=== PATIENT | female | born 1975 | race Caucasian/White ===

== ENCOUNTER 2017-02-16 17:31 | Inpatient (IN) | payer OTHER ==
[~2017-02-16] VITALS: Ht 165.1 cm; Wt 104.4 kg
[2017-02-16] MEDS ORDERED: ONDANSETRON 4 MG INJ IV PRN (21:00)
[2017-02-16] MEDS ORDERED: ACCU-CHEK XX SCH (21:00)
[2017-02-16] MEDS ORDERED: DIPHENHYDRAMINE 25 MG CAP PO PRN (21:00)
[2017-02-16] MEDS ORDERED: DEXTROSE 50% 50 ML SYRINGE IV PRN ×3 (21:00→22:30)
[2017-02-16] MEDS ORDERED: BISACODYL 10 MG SUPP PR PRN ×2 (21:00→23:00)
[2017-02-16] MEDS ORDERED: SENNA/DOCUSATE NA (8.6MG/50MG) TAB PO PRN (21:00)
[2017-02-16] MEDS ORDERED: ZOLPIDEM 5 MG TAB PO PRN (21:00)
[2017-02-16] MEDS ORDERED: INSULIN REGULAR, HUMAN 100 UNIT/1 ML 3ML VIAL SC SCH (21:00)
[2017-02-16] MEDS ORDERED: AL HYDROX/MG HYDROX/SIMETH 30 ML CUP PO PRN (21:00)
[2017-02-16] MEDS ORDERED: NALOXONE (0.4 MG/ML) INJ IV PRN (21:00)
[2017-02-16 21:23] VITALS: Ht 165.1 cm; Wt 104.4 kg
[2017-02-16] MEDS ORDERED: GLUCOSE GEL 15 GRAM TUBE PO PRN ×2 (22:30)
[2017-02-16] MEDS ORDERED: GLUCOSE GEL 15 GRAM TUBE BUCCAL PRN (22:30)
[2017-02-16] MEDS ORDERED: GLUCAGON 1 MG INJ IM PRN (22:30)
[2017-02-16] MEDS: DOCUSATE SODIUM 100 MG CAP PO SCH (22:32)
[2017-02-16] MEDS: PANTOPRAZOLE (EC) 40 MG TAB PO SCH (22:32)
[2017-02-16] MEDS: oxyCODONE 15 MG TAB PO PRN (22:39)
[2017-02-16] MEDS ORDERED: MAGNESIUM HYDROXIDE 30ML CUP PO PRN (23:00)
[2017-02-16] MEDS ORDERED: LACTULOSE 30ML CUP PO PRN (23:00)
[2017-02-16] MEDS ORDERED: ACETAMINOPHEN 325 MG TAB PO PRN (23:00)
[2017-02-16 23:24] LABS: ADD UMIC YES; URINE BILIRUBIN (Dip) NEGATIVE (NEGATIVE); URINE BLOOD (Dip) 2+ (NEGATIVE); URINE COLOR LT. YELLOW (YELLOW); URINE KETONES (Dip) NEGATIVE (NEGATIVE); URINE LEUKOCYTE ESTERASE (Dip) NEGATIVE (NEGATIVE); URINE NITRITE (Dip) NEGATIVE (NEGATIVE); URINE TOTAL PROTEIN (Dip) NEGATIVE (NEGATIVE); URINE UROBILINOGEN (Dip) 1.0 E.U./dL (0.1-1.0)
[2017-02-16 23:40] LABS: BACTERIA,URINE FEW; SQUAMOUS EPITHELIAL CELL,UR MODERATE
[2017-02-17] MEDS: HYDROmorphONE 1 MG/ML SYG SC PRN (01:05)
[2017-02-17] MEDS: ACCUCHECK AT 2AM (Patients on SS coverage) XX SCH (02:00)
[2017-02-17] MEDS: oxyCODONE 15 MG TAB PO PRN ×4 (04:07→22:10)
[2017-02-17 07:36] LABS: ADD SCAN DIFF NO
[2017-02-17 07:45] LABS: BASOPHIL # 0.1 10^3/ul (0.0-0.1); BASOPHILS % 0.5 % (0.0-2.0); EOSINOPHILS # 0.5 10^3/ul (0.0-0.5); EOSINOPHILS % 4.6 % (0.0-7.0); HEMATOCRIT 27.3 % (37.0-47.0); HEMOGLOBIN 8.8 g/dl (12.0-16.0); LYMPHOCYTES # 2.2 10^3/ul (0.8-2.9); LYMPHOCYTES % 21.8 % (15.0-51.0); MEAN CORPUSCULAR HEMOGLOBIN 28.9 pg (29.0-33.0); MEAN CORPUSCULAR HGB CONC 32.2 g/dl (32.0-37.0); MEAN CORPUSCULAR VOLUME 89.8 fl (82.0-101.0); MEAN PLATELET VOLUME 9.7 fl (7.4-10.4); MONOCYTE # 0.9 10^3/ul (0.3-0.9); MONOCYTES % 8.6 % (0.0-11.0); NEUTROPHIL # 6.5 10^3/ul (1.6-7.5); NEUTROPHILS % 64.2 % (39.0-77.0); PLATELET COUNT 370 10^3/UL (140-415); RED BLOOD COUNT 3.04 10^6/ul (4.20-5.40); RED CELL DISTRIBUTION WIDTH 12.1 % (11.5-14.5); WHITE BLOOD COUNT 10.1 10^3/ul (4.8-10.8)
[2017-02-17 07:55] LABS: ALBUMIN 2.8 g/dl (3.3-4.9); ALBUMIN/GLOBULIN RATIO 0.84; CREATININE 0.51 mg/dl (0.44-1.00); POTASSIUM 4.2 mmol/L (3.5-5.1); TOTAL PROTEIN 6.1 g/dl (6.1-8.1)
[2017-02-17] MEDS: Insulin NOVOLOG SS MILD Algorithm (SS with meals and bedtime) SC SCH ×5 (08:08→20:53)
[2017-02-17] MEDS: DOCUSATE SODIUM 100 MG CAP PO SCH ×2 (08:09→20:35)
[2017-02-17] MEDS: metFORMIN 500 MG TAB PO SCH ×2 (08:09→17:33)
[2017-02-17 08:10] LABS: BILIRUBIN,INDIRECT 0.6 mg/dl (0-1.1); BILIRUBIN,TOTAL 0.6 mg/dl (0.2-1.3)
[2017-02-17] MEDS: LISINOPRIL 20 MG TAB PO SCH (08:12)
[2017-02-17] MEDS ORDERED: DOCUSATE SODIUM 100 MG CAP PO SCH (09:00)
--- NOTE | 2017-02-17 09:57 | HP ---
DATE OF ADMISSION: 02/16/2017 PHYSICAL MEDICINE AND REHABILITATION HISTORY AND PHYSICAL/PHYSICIAN POSTADMISSION ASSESSMENT DATE OF VISIT: 02/17/2017 REHABILITATION IMPAIRMENT GROUP: Status post left total knee replacement. CHIEF COMPLAINT: Impaired mobility and left knee pain. HISTORY OF PRESENT ILLNESS: This is a 41-year-old obese female with past medical history significant for diabetes mellitus and hypertension who sustained a work related injury to her left knee in January 2009 with increasing left knee pain and noted left knee degenerative joint disease, failing conservative treatment, so she elected to proceed with a left total knee replacement. The patient went to the OR on 02/12/2017 and underwent left total knee replacement by Dr. Blaine Stroud with no reported intraoperative complications. Postoperatively she is weight bearing as tolerated on the left lower extremity with knee immobilizer on during out of bed activities per documentation in the chart. Her post op course has been complicated by postoperative pain followed by pain management team. The patient was placed on Xarelto for DVT prophylaxis. The patient did work with physical and occupational therapies and noted to have a significant overall functional decline from her baseline independent status. Currently she is requiring moderate assistance for bed mobility and transfers as well as gait 30 feet with a walker and she is requiring moderate assistance for toileting and bathing, maximal assistance for lower body dressing, minimal assistance for grooming and upper body dressing. PAST MEDICAL AND SURGICAL HISTORY: As stated in history of present illness. FAMILY HISTORY: Noncontributory. SOCIAL HISTORY: The patient denies current toxic habits. She lives in a single story home with her family, reports 1 step to enter. The patient reports she was previously independent for all mobility and self-care ADLs and was using a cane for ambulation. MEDICATIONS ON ADMISSION: Reviewed in the electronic medical records including : 1. Senna daily. 2. Xarelto 10 mg daily. 3. Lisinopril 20 mg daily. 4. Metformin 500 mg twice daily. 5. Insulin sliding scale as needed. 6. Milk of magnesia as needed. 7. Lactulose as needed. 8. Dulcolax suppository as needed. 9. Tylenol as needed. 10. Protonix 40 mg daily. 11. Colace 100 mg twice daily. 12. Senokot as needed. 13. Ambien as needed. 14. Clonidine as needed. 15. Benadryl as needed. 16. Ativan as needed. 17. Phenol as needed. 18. Oxycodone immediate release 15 mg oral q. 3 hours as needed for pain. 19. Zofran as needed. 20. Dilaudid 1 mg subcutaneous q. 3 hours as needed for pain. ALLERGIES: NO KNOWN DRUG ALLERGIES. LABORATORIES/IMAGING: Reviewed in the electronic medical records. Hemoglobin 8.8, hematocrit 27.3. WBC 10.1, platelets 370. Sodium 132, potassium 4.2, BUN 8, creatinine 0.51, calcium 8.0, albumin 2.8. REVIEW OF SYSTEMS: CONSTITUTIONAL: Denies fevers, chills. EYES: Denies pain or discharge. EARS, NOSE AND THROAT: Denies changes in hearing, no difficulty swallowing. RESPIRATORY: Denies shortness of breath, no cough. CARDIOVASCULAR: No chest pain, no palpitations. GENITOURINARY: Denies dysuria or hematuria. GASTROINTESTINAL: Denies abdominal pain, no nausea or vomiting. Reports bowel movement yesterday. NEUROLOGICAL: Denies new focal weakness. No new paresthesias. MUSCULOSKELETAL: Currently reports 7/10 pain in the left knee after working with physical therapies. SKIN: Denies itching. No new rashes. PSYCHIATRIC: Denies anxiety or depression. REVIEW OF SYSTEMS: Otherwise negative. PHYSICAL EXAMINATION: VITAL SIGNS: Temperature 98.1 Fahrenheit, BP 120/72, heart rate 104, respiratory rate 16, 96% O2 saturation on room air . GENERAL: The patient is a well-nourished, well-developed, obese, awake, alert, in no acute distress. HEENT: Normocephalic, atraumatic. Mucous membranes moist. Sclera anicteric. NECK: Supple, nontender. RESPIRATORY: Lungs are clear to auscultation. No crackles or wheezing. No accessory muscle use. CARDIOVASCULAR: Regular rate and rhythm. Audible S1, S2. ABDOMEN: Soft, nontender, bowel sounds present, no masses palpated. EXTREMITIES: Calves are nontender. No cyanosis. There is some swelling and bruising near the left knee region. SKIN: Blanchable redness in the bilateral heels as well as in the sacrococcyx area and some bruising near the left knee surgical site with Aquacel dressing in place, was not removed. Per pictures left knee surgical site appears clean and dry with kwame in place. Scattered bruising in the extremities. PSYCHIATRIC: Oriented x3. Affect and mood are appropriate. NEUROLOGICAL/MUSCULOSKELETAL: Active range of motion in the bilateral upper and right lower extremity is within functional limits. No joint redness. She has antigravity strength overall in the upper extremities and right lower extremity. Active Left dorsiflexion, plantar flexion on the left and wiggles toes. Left lower extremity proximal testing pain limited. Sensation intact to light touch. IMPRESSION: 1. Status post work related injury to the left knee with left knee degenerative joint disease failing conservative treatment now status post left total knee replacement. 2. Acute postoperative pain syndrome. 3. Impaired mobility, gait and balance. 4. Impaired self-care activities of daily living. 5. Diabetes mellitus type 2. 6. Hypertension. 7. Obesity. 8. Anemia. PLAN: 1. The patient will be admitted for inpatient comprehensive interdisciplinary rehabilitation to address impairments and medical conditions listed above while assessing equipment needs and compensatory strategies with coordinated interdisciplinary services that will include physical and occupational therapies and close monitoring and treatment with 24-hour rehabilitation nursing. This interdisciplinary program will be performed under the direction of a technical illustrations map inker. The patient is anticipated to be able to participate in 3 hours daily of therapies for at least 5 out of the 7 days per week. 2. The patient will begin physical therapy for bed mobility, transfers, balance training, gait training with assistive devices. 3. Begin occupational therapies for activities of daily living, functional transfers, patient education and adaptive equipment evaluation. 4. Rehabilitation nursing to provide the patient education regarding current medications as they relate to medical illness. Monitor blood sugars. Monitor for signs or symptoms of hyper or hypoglycemia. Monitor pain and monitor bowel and bladder programs and administer such programs. 5. For medical management the patient will be followed by Dr. [facility]. 6. For hypertension, internal medicine is to medically manage. We will monitor her blood pressures. 7. For diabetes mellitus type 2, being medically managed per internal medicine. Continue current regimen and monitor blood sugars. 8. For anemia, monitor hemoglobin and hematocrit. Defer further workup per internal medicine. 9. For deep venous thrombosis prophylaxis she is on Xarelto. 10. Gastrointestinal prophylaxis she is on a proton pump inhibitor. 11. For acute postoperative pain, pain appears to be uncontrolled with current regimen. Dosing of p.r.n. immediate release oxycodone has been increased. Will also start on Oxycontin extended release for better pain relief. Will monitor as she mobilizes further with therapies and adjust further as needed. REHABILITATION GOALS: To improve bed mobility, transfers, gait and self-care ADLs to supervision level. ESTIMATED LENGTH OF STAY: Approximately 10 to 14 days. Her case will be discussed at the weekly interdisciplinary conference. ANTICIPATED DISPOSITION: To home with family. PROGNOSIS: At this current time this inpatient hospital rehabilitation stay is medically necessary to achieve important health and functional goals. The patient requires frequent physician visits, 24-hour rehabilitation nursing and a coordinated intensive rehabilitation program as described above to address complex medical, nursing and rehabilitation needs. The patient has a good prognosis for benefiting from this program and returning to home and community. REHABILITATION PHYSICIAN POST-ADMISSION ASSESSMENT REVIEW: I have had the opportunity to examine the patient within 24 hours of admission and have reviewed the preadmission assessment and find it consistent with my examination and evaluation of the patient. I confirm that this patient is appropriate for admission and treatment in this inpatient rehabilitation hospital, needs intense interdisciplinary rehabilitation care and is expected to achieve meaningful goals within a reasonable period of time that are consistent with a planned discharge disposition as noted above. Dictated By: GLEN HOUGH MD, RA/ETHAN Conf#: [id number] DID#: [id number]
[2017-02-17] MEDS: oxyCODONE 5 MG TAB PO PRN ×2 (10:36→14:10)
[2017-02-17] MEDS: RIVAROXABAN 10 MG TABLET PO SCH (17:33)
[2017-02-17 19:20] VITALS: BP 115/76; PULSE 98; RESP 18
[2017-02-17] MEDS: PANTOPRAZOLE (EC) 40 MG TAB PO SCH (20:35)
[2017-02-17] MEDS: oxyCODONE (CR) 10 MG TAB [oxyCONTIN] PO SCH (20:35)
[2017-02-17] MEDS: SENNA TAB PO SCH (20:36)
[2017-02-17] MEDS: LORAZEPAM 0.5 MG TAB PO PRN (22:07)
[2017-02-18] MEDS: ACCUCHECK AT 2AM (Patients on SS coverage) XX SCH (02:30)
[2017-02-18] MEDS: oxyCODONE 15 MG TAB PO PRN (03:47)
[2017-02-18 07:30] VITALS: BP 123/68; RESP 18
[2017-02-18] MEDS: metFORMIN 500 MG TAB PO SCH ×2 (08:34→17:33)
[2017-02-18] MEDS: LISINOPRIL 20 MG TAB PO SCH (08:34)
[2017-02-18] MEDS: CEPASTAT LOZENGE MT PRN ×3 (08:34→17:36)
[2017-02-18] MEDS: DOCUSATE SODIUM 100 MG CAP PO SCH ×2 (08:35→20:11)
[2017-02-18] MEDS: Insulin NOVOLOG SS MILD Algorithm (SS with meals and bedtime) SC SCH ×4 (08:37→20:46)
[2017-02-18] MEDS: oxyCODONE (CR) 10 MG TAB [oxyCONTIN] PO SCH ×2 (08:38→20:12)
--- NOTE | 2017-02-18 09:36 | CONS ---
Date/Time of Note Date/Time of Note DATE: 02/18/17 TIME: 09:27 Consult Date/Type/Reason Admit Date/Time Feb 16, 2017 at 20:23 Initial Consult Date Subjective This is a 41-year-old morbidly obese female with past medical history significant for diabetes mellitus and hypertension who sustained a work related injury to her left knee in January 2009 with increasing left knee pain and noted left knee degenerative joint disease, failing conservative treatment, she elected to proceed with a left total knee replacement. The patient went to the OR on 02/12/2017 and underwent left total knee replacement by Dr. Blaine Stroud with no reported intraoperative complications. Postoperative course has been complicated by postoperative pain followed by pain management team. The patient was placed on Xarelto for DVT prophylaxis. The patient did work with physical and occupational therapies and noted to have a significant overall functional decline from her baseline independent status. Currently she is requiring minimal assistance for bed mobility and transfers as well as gait 30 feet with a walker and she is requiring moderate assistance for bathing, maximal assistance for lower body dressing, supervision for grooming. REVIEW OF SYSTEMS: CONSTITUTIONAL: Denies fevers, chills. EYES: Denies pain or discharge. EARS, NOSE AND THROAT: Denies changes in hearing, no difficulty swallowing. RESPIRATORY: Denies shortness of breath, no cough. CARDIOVASCULAR: No chest pain, no palpitations. GENITOURINARY: Denies dysuria or hematuria. GASTROINTESTINAL: Denies abdominal pain, no nausea or vomiting. Reports bowel movement yesterday. NEUROLOGICAL: Denies new focal weakness. No new paresthesias. MUSCULOSKELETAL: Currently reports 7/10 pain in the left knee after working with physical therapies. SKIN: Denies itching. Her surgical site has an Aquacel dressing in place. She has blanchable redness in the bilateral heels. There is some scattered bruising in her extremities as well as bruising in the left lower extremity near in the knee region and blanchable redness in the sacrococcyx area. PSYCHIATRIC: Denies anxiety or depression. PHYSICAL EXAMINATION: GENERAL: The patient is a well-nourished, well-developed, obese, awake, alert, in no acute distress. HEENT: Normocephalic, atraumatic. Mucous membranes moist. NECK: Supple, nontender. RESPIRATORY: Lungs are clear to auscultation. No crackles or wheezing. CARDIOVASCULAR: Regular rate and rhythm. Audible S1, S2. ABDOMEN: Soft, nontender, bowel sounds present, no masses palpated. EXTREMITIES: Calves are nontender. No cyanosis. There is some swelling and bruising near the left knee region. SKIN: Blanchable redness in the bilateral heels as well as in the sacrococcyx area and some bruising near the left knee surgical site with Aquacel dressing in place, was not removed. PSYCHIATRIC: Affect and mood are appropriate. NEUROLOGICAL/MUSCULOSKELETAL: Active range of motion in the bilateral upper and right lower extremity is within normal limits. No joint redness. She has good to good plus strength overall in the upper extremities and right lower extremity. Left dorsiflexion, plantar flexion appears to be grossly intact. Left lower extremity proximal testing pain limited. Objective Vital Signs Date Time Temp Pulse Resp B/P Pulse Ox O2 Delivery O2 Flow Rate FiO2 02/17/17 19:20 98.1 98 18 115/76 95 Room Air Results/Medications Result Diagram: 02/17/1761802/17/17618 Results 24 hrs Laboratory Tests Test 02/17/17 12:04 02/17/17 17:01 02/17/17 20:41 02/18/17 02:28 Bedside Glucose 228 H 155 282 H 166 Test 02/18/17 07:33 Bedside Glucose 197 Medications Current Medications Docusate Sodium (Colace) 100 mg BID PO Last administered on 02/18/17 08:35; Admin Dose 100 MG; Start 02/16/17 at 21:00 Pantoprazole (Protonix Tab) 40 mg HS PO Last administered on 02/17/17 20:35; Admin Dose 40 MG; Start 02/16/17 at 22:30 Lisinopril (Zestril) 20 mg DAILY PO Last administered on 02/18/17 08:34; Admin Dose 20 MG; Start 02/17/17 at 09:00 Senna/Docusate Sodium (Senokot-S) 2 tab HS PRN PO CONSTIPATION; Start 02/16/17 at 21:00 Al Hydrox/Mg Hydrox/Simethicone (Mag-Al Plus) 30 ml Q6H PRN PO GASTROINTESTINAL UPSET; Start 02/16/17 at 21:00 Clonidine (Catapres) 0.1 mg Q8H PRN PO SBP >180; Start 02/16/17 at 21:00 Diphenhydramine HCl (Benadryl) 25 mg Q6H PRN PO ITCHING; Start 02/16/17 at 21:00 Lorazepam (Ativan) 0.5 mg Q8H PRN PO ANXIETY Last administered on 02/17/17 22: 07; Admin Dose 0.5 MG; Start 02/16/17 at 21:00 Phenol (Cepastat Lozenge) 1 lozenge Q2H PRN MT SORE THROAT Last administered on 02/18/17 08:34; Admin Dose 1 LOZENGE; Start 02/16/17 at 21:00 Oxycodone HCl (Roxicodone) 15 mg Q3H PRN PO PAIN Last administered on 02/18/17 03:47; Admin Dose 15 MG; Start 02/16/17 at 21:00 Bisacodyl (Dulcolax Supp) 10 mg Q12H PRN DC CONSTIPATION; Start 02/16/17 at 21: 00 Naloxone HCl (Narcan) 0.2 mg Q2M PRN IV OPIATE OVERDOSE; Start 02/16/17 at 21:00 Ondansetron HCl (Zofran Inj) 4 mg Q4H PRN IV NAUSEA AND/OR VOMITING; Start 02/16 at 21:00 Hydromorphone HCl (Dilaudid) 1 mg Q3H PRN SC PAIN Last administered on 01:05; Admin Dose 1 MG; Start 02/16/17 at 21:00 Diagnostic Test (Pha) (Accu-Chek) 1 ea 02 XX Last administered on 02/18/17 02: 30; Admin Dose 1 EA; Start 02/17/17 at 02:00 Miscellaneous Information 1 ea NOTE XX ; Start 02/16/17 at 22:30 Glucose (Glutose) 15 gm Q15M PRN PO DECREASED GLUCOSE; Start 02/16/17 at 22:30 Glucose (Glutose) 22.5 gm Q15M PRN PO DECREASED GLUCOSE; Start 02/16/17 at 22:30 Dextrose (D50w Syringe) 25 ml Q15M PRN IV DECREASED GLUCOSE; Start 02/16/17 at 22:30 Dextrose (D50w Syringe) 50 ml Q15M PRN IV DECREASED GLUCOSE; Start 02/16/17 at 22:30 Glucagon (Glucagen) 1 mg Q15M PRN IM DECREASED GLUCOSE; Start 02/16/17 at 22:30 Glucose (Glutose) 15 gm Q15M PRN BUCCAL DECREASED GLUCOSE; Start 02/16/17 at 22: 30 Senna (Senokot) 1 tab HS PO Last administered on 02/17/17 20:36; Admin Dose 1 TAB; Start 02/17/17 at 21:00 Magnesium Hydroxide (Milk Of Mag) 30 ml BID PRN PO CONSTIPATION; Start 02/16/17 at 23:00 Lactulose (Enulose) 20 gm DAILY PRN PO CONSTIPATION; Start 02/16/17 at 23:00 Bisacodyl (Dulcolax Supp) 10 mg DAILY PRN DC CONSTIPATION; Start 02/16/17 at 23: 00 Acetaminophen (Tylenol Tab) 650 mg Q4H PRN PO PAIN; Start 02/16/17 at 23:00 Oxycodone HCl (Roxicodone) 20 mg Q3H PRN PO PAIN Last administered on 02/17/17 14:10; Admin Dose 20 MG; Start 02/17/17 at 09:30 Oxycodone HCl (Oxycontin) 10 mg BID PO Last administered on 02/18/17 08:38; Admin Dose 10 MG; Start 02/17/17 at 21:00 Assessment/Plan Chief Complaint/Hosp Course 1. Status post left total knee replacement.- cont pt as outlined by pm&r team. prophylaxis on xarelto. to contact dr. sneed re staple removal. 2. Acute postoperative pain syndrome. reassured patient it is normal. 3. Impaired mobility, gait and balance. 4. Anemia- likely surgical blood loss. if worsens, will need investigation for ongoing blood loss. 5. Diabetes mellitus type 2. 6. Hypertension. 7. Morbid obesity. Problems: BRENNON AGUILAR MD Feb 18, 2017 09:36
--- NOTE | 2017-02-18 10:14 | CONS ---
DATE OF ADMISSION: 02/16/2017 DATE OF CONSULTATION: 02/17/2017 TYPE OF CONSULTATION: Internal medicine. HISTORY OF PRESENT ILLNESS: The patient is a 41-year-old female with past medical history of diabet es and hypertension who presented to [facility] for surgery after noticing a work related injury and left degenerative joint disease, fairly conservative treatment. She elected to proceed with left total knee replacement. She went to the OR on 02/12/2017. Postoperative course complicat ed by postoperative pain followed by pain management team. The patient was placed on Xarelto. She has been tolerating her medications but complains of significant pain still. PAST MEDICAL HISTORY: Significant for diabetes, hypertension, GERD. MEDICATIONS: From home include 1. Metformin. 2. Lisinopril. 3. Xarelto. 4. Senna. 5. Insulin sliding scale. 6. Milk of magnesia. 7. Lactulose. 8. Dulcolax. 9. Tylenol. 10. Protonix. 11. Colace. 12. Senokot. 13. Ambien. 14. Clonidine. 15. Benadryl. 16. Ativan. ALLERGIES: THE PATIENT HAS NO KNOWN ALLERGIES. SOCIAL HISTORY: Does not smoke, drink, or use IV drugs. Lives at home. FAMILY HISTORY: History of kidney disease. REVIEW OF SYSTEMS: A 14-point review of systems is attempted and negative otherwise stated. PHYSICAL EXAMINATION: VITAL SIGNS: We see temperature 98.1, blood pressure 120/72. HEENT: Normocephalic, atraumatic. Pupils equal, round, and reactive to light. Oropharynx shows mo ist mucous membranes. NECK: Supple. HEART: Regular rate and rhythm. LUNGS: Clear to auscultation. ABDOMEN: Soft, nontender, nondistended. Normoactive bowel sounds. EXTREMITIES: No clubbing, cyanosis, or edema. LABORATORY EVALUATION: White count 10.1, hemoglobin 8.8, hematocrit 27.3. Sodium 132, potassium 4. 2, BUN 8, creatinine 0.5, albumin is 2.8. UA is reviewed on microscopy. Chest x-ray is reviewed by radiologist. IMPRESSION: 1. Postoperative total knee replacement. Continue PT as outlined by rehabilitation team. Continue analgesia as outlined by the postoperative pain syndrome. I explained to the patient that time sha ll decrease her pain. 2. Diabetes. Continue metformin and sliding scale insulin and specify diet. 3. Hypertension. Continue same. 4. Anemia. Postoperative related blood loss. Monitor. If worsens, consider investigation for blo od loss with GI. 5. Gastroesophageal reflux disease. Continue proton pump inhibitor. 6. Hyponatremia, mild. Monitor. 7. Prophylaxis on Xarelto and proton pump inhibitor. Dictated By: BRENNON JO/ETHAN Conf#: [id number] DID#: [id number]
[2017-02-18] MEDS: oxyCODONE 5 MG TAB PO PRN ×4 (11:52→23:09)
[2017-02-18] MEDS: RIVAROXABAN 10 MG TABLET PO SCH (17:33)
[2017-02-18] MEDS: PANTOPRAZOLE (EC) 40 MG TAB PO SCH (20:11)
[2017-02-18] MEDS: SENNA TAB PO SCH (20:11)
[2017-02-18 20:35] VITALS: BP 114/72; RESP 16
[2017-02-19] MEDS: HYDROmorphONE 1 MG/ML SYG SC PRN (01:13)
[2017-02-19] MEDS: ACCUCHECK AT 2AM (Patients on SS coverage) XX SCH (02:00)
[2017-02-19 07:18] LABS: ADD SCAN DIFF NO
[2017-02-19 07:19] LABS: BASOPHIL # 0.1 10^3/ul (0.0-0.1); BASOPHILS % 0.6 % (0.0-2.0); EOSINOPHILS # 0.4 10^3/ul (0.0-0.5); EOSINOPHILS % 4.4 % (0.0-7.0); HEMATOCRIT 29.3 % (37.0-47.0); HEMOGLOBIN 9.3 g/dl (12.0-16.0); LYMPHOCYTES # 2.4 10^3/ul (0.8-2.9); LYMPHOCYTES % 24.4 % (15.0-51.0); MEAN CORPUSCULAR HEMOGLOBIN 28.4 pg (29.0-33.0); MEAN CORPUSCULAR HGB CONC 31.7 g/dl (32.0-37.0); MEAN CORPUSCULAR VOLUME 89.6 fl (82.0-101.0); MEAN PLATELET VOLUME 9.3 fl (7.4-10.4); MONOCYTE # 0.8 10^3/ul (0.3-0.9); MONOCYTES % 8.3 % (0.0-11.0); NEUTROPHILS % 61.9 % (39.0-77.0); PLATELET COUNT 452 10^3/UL (140-415); RED BLOOD COUNT 3.27 10^6/ul (4.20-5.40); RED CELL DISTRIBUTION WIDTH 12.3 % (11.5-14.5); WHITE BLOOD COUNT 9.7 10^3/ul (4.8-10.8)
[2017-02-19 07:30] VITALS: BP 121/72; RESP 18
[2017-02-19 07:41] LABS: MAGNESIUM 1.5 mg/dl (1.7-2.5); PHOSPHORUS 4.3 mg/dl (2.5-4.9)
[2017-02-19 07:42] LABS: ALBUMIN/GLOBULIN RATIO 0.88; BILIRUBIN,INDIRECT 0.4 mg/dl (0-1.1); BILIRUBIN,TOTAL 0.4 mg/dl (0.2-1.3); CALCIUM 8.3 mg/dl (8.4-10.2); CREATININE 0.55 mg/dl (0.44-1.00); POTASSIUM 4.2 mmol/L (3.5-5.1); TOTAL PROTEIN 6.4 g/dl (6.1-8.1)
[2017-02-19] MEDS: Insulin NOVOLOG SS MILD Algorithm (SS with meals and bedtime) SC SCH ×4 (08:11→21:00)
[2017-02-19] MEDS: metFORMIN 500 MG TAB PO SCH ×2 (08:11→16:48)
[2017-02-19] MEDS: DOCUSATE SODIUM 100 MG CAP PO SCH ×2 (08:11→20:30)
[2017-02-19] MEDS: oxyCODONE (CR) 10 MG TAB [oxyCONTIN] PO SCH ×2 (08:12→20:31)
[2017-02-19] MEDS: LISINOPRIL 20 MG TAB PO SCH (08:12)
[2017-02-19] MEDS ORDERED: MAGNESIUM OXIDE 400 MG TAB PO ONE (10:30)
[2017-02-19] MEDS: oxyCODONE 5 MG TAB PO PRN ×4 (10:37→22:45)
--- NOTE | 2017-02-19 11:03 | PN ---
DATE: 02/19/2017 SUBJECTIVE: The patient is stable. Pain is currently controlled. No other acute events noted. OBJECTIVE: VITAL SIGNS: Blood pressure 142/62, respirations 16, pulse 97, temperature 98.3. HEENT: Head is normocephalic. NECK: Supple. HEART: Regular rate. LUNGS: Show diminished breath sounds at the base. ABDOMEN: Soft, nontender to palpation without rebound or guarding. EXTREMITIES: Negative for clubbing, cyanosis. No edema. DERMATOLOGIC: No rashes. MUSCULOSKELETAL: The patient's left knee is in a brace. NEUROLOGIC: No change in exam. LABORATORY DATA: Shows sodium 134, potassium 4.2, BUN 7, creatinine 0.55, magnesium 1.7. White cou nt 9.7, hemoglobin 9.3, hematocrit 29.3, platelet count is 452. ASSESSMENT AND PLAN: 1. Status post left knee replacement therapy. The patient currently receiving PT, OT. Continue pa in control. Continue deep venous thrombosis prophylaxis. 2. Diabetes. Continue current insulin regimen. Continue metformin. 3. Hypertension. Continue current blood pressure regimen. 4. Anemia. Continue to monitor hemoglobin and hematocrit levels. 5. Mild hyponatremia. Continue to monitor. 6. Deep venous thrombosis prophylaxis. Continue proton pump inhibitor and Xarelto. 7. Hypomagnesemia, replete with magnesium oxide. Dictated By: RASHAWN BEAN/ETHAN Conf#: [id number] DID#: [id number]
--- NOTE | 2017-02-19 12:05 | CONS ---
Date/Time of Note Date/Time of Note DATE: 02/19/17 TIME: 12:05 Consult Date/Type/Reason Admit Date/Time Feb 16, 2017 at 20:23 Initial Consult Date Objective Vital Signs Date Time Temp Pulse Resp B/P Pulse Ox O2 Delivery O2 Flow Rate FiO2 02/19/17 07:30 98.2 105 18 121/72 95 02/17/17 19:20 Room Air Intake and Output 02/18/17 02/18/17 02/19/17 15:00 23:00 07:00 Intake Total 500 ml 820 ml 420 ml Output Total 1600 ml 400 ml Balance -1100 ml 420 ml 420 ml INTERDISCIPLINARY TEAM CONFERENCE BOWEL- Cont BLADDER-Cont SKIN- intact OT- DRESSING-min/mod BATHING-min/mod TOILETING-min/mod PT- BED MOBILITY-mod TRANSFERS-mod AMBULATION-mod 50 feet A/P- Interdisciplinary team conference held today. Please see interdisciplinary sheet. Working toward d.[email or web address] on 02/27 with post discharge follow up of physical therapy, occupational therapy. Results/Medications Result Diagram: 02/19/17 0600 02/19/17 0600 Results 24 hrs Laboratory Tests Test 02/18/17 17:03 02/18/17 20:31 02/19/17 01:31 02/19/17 06:00 Bedside Glucose 213 186 230 H White Blood Count 9.7 Red Blood Count 3.27 L Hemoglobin 9.3 L Hematocrit 29.3 L Mean Corpuscular Volume 89.6 Mean Corpuscular Hemoglobin 28.4 L Mean Corpuscular Hemoglobin Concent 31.7 L Red Cell Distribution Width 12.3 Platelet Count 452 #H Mean Platelet Volume 9.3 Neutrophils % 61.9 Lymphocytes % 24.4 Monocytes % 8.3 Eosinophils % 4.4 Basophils % 0.6 Nucleated Red Blood Cells % 0.0 Neutrophils # 6.0 Lymphocytes # 2.4 Monocytes # 0.8 Eosinophils # 0.4 Basophils # 0.1 Nucleated Red Blood Cells # 0.0 Sodium Level 134 L Potassium Level 4.2 Chloride Level 100 Carbon Dioxide Level 28 Anion Gap 10 Blood Urea Nitrogen 7 Creatinine 0.55 Glucose Level 173 Calcium Level 8.3 L Phosphorus Level 4.3 Magnesium Level 1.5 L Total Bilirubin 0.4 Direct Bilirubin 0.00 Indirect Bilirubin 0.4 Aspartate Amino Transf (AST/SGOT) 16 Alanine Aminotransferase (ALT/SGPT) 27 Alkaline Phosphatase 50 Total Protein 6.4 Albumin 3.0 L Globulin 3.40 H Albumin/Globulin Ratio 0.88 Test 02/19/17 07:32 Bedside Glucose 190 Medications Current Medications Docusate Sodium (Colace) 100 mg BID PO Last administered on 02/19/17 08:11; Admin Dose 100 MG; Start 02/16/17 at 21:00 Pantoprazole (Protonix Tab) 40 mg HS PO Last administered on 02/18/17 20:11; Admin Dose 40 MG; Start 02/16/17 at 22:30 Lisinopril (Zestril) 20 mg DAILY PO Last administered on 02/19/17 08:12; Admin Dose 20 MG; Start 02/17/17 at 09:00 Senna/Docusate Sodium (Senokot-S) 2 tab HS PRN PO CONSTIPATION; Start 02/16/17 at 21:00 Al Hydrox/Mg Hydrox/Simethicone (Mag-Al Plus) 30 ml Q6H PRN PO GASTROINTESTINAL UPSET; Start 02/16/17 at 21:00 Clonidine (Catapres) 0.1 mg Q8H PRN PO SBP >180; Start 02/16/17 at 21:00 Diphenhydramine HCl (Benadryl) 25 mg Q6H PRN PO ITCHING; Start 02/16/17 at 21:00 Lorazepam (Ativan) 0.5 mg Q8H PRN PO ANXIETY Last administered on 02/17/17 22: 07; Admin Dose 0.5 MG; Start 02/16/17 at 21:00 Phenol (Cepastat Lozenge) 1 lozenge Q2H PRN [place] SORE THROAT Last administered on 02/18/17 17:36; Admin Dose 1 LOZENGE; Start 02/16/17 at 21:00 Oxycodone HCl (Roxicodone) 15 mg Q3H PRN PO PAIN Last administered on 02/18/17 03:47; Admin Dose 15 MG; Start 02/16/17 at 21:00 Bisacodyl (Dulcolax Supp) 10 mg Q12H PRN [place] CONSTIPATION; Start 02/16/17 at 21: 00 Naloxone HCl (Narcan) 0.2 mg Q2M PRN IV OPIATE OVERDOSE; Start 02/16/17 at 21:00 Ondansetron HCl (Zofran Inj) 4 mg Q4H PRN IV NAUSEA AND/OR VOMITING; Start 02/16 at 21:00 Hydromorphone HCl (Dilaudid) 1 mg Q3H PRN SC PAIN Last administered on 01:13; Admin Dose 1 MG; Start 02/16/17 at 21:00 Diagnostic Test (Pha) (Accu-Chek) 1 ea 02 XX Last administered on 02/19/17 02: 00; Admin Dose 1 EA; Start 02/17/17 at 02:00 Miscellaneous Information 1 ea NOTE XX ; Start 02/16/17 at 22:30 Glucose (Glutose) 15 gm Q15M PRN PO DECREASED GLUCOSE; Start 02/16/17 at 22:30 Glucose (Glutose) 22.5 gm Q15M PRN PO DECREASED GLUCOSE; Start 02/16/17 at 22:30 Dextrose (D50w Syringe) 25 ml Q15M PRN IV DECREASED GLUCOSE; Start 02/16/17 at 22:30 Dextrose (D50w Syringe) 50 ml Q15M PRN IV DECREASED GLUCOSE; Start 02/16/17 at 22:30 Glucagon (Glucagen) 1 mg Q15M PRN IM DECREASED GLUCOSE; Start 02/16/17 at 22:30 Glucose (Glutose) 15 gm Q15M PRN BUCCAL DECREASED GLUCOSE; Start 02/16/17 at 22: 30 Senna (Senokot) 1 tab HS PO Last administered on 02/18/17 20:11; Admin Dose 1 TAB; Start 02/17/17 at 21:00 Magnesium Hydroxide (Milk Of Mag) 30 ml BID PRN PO CONSTIPATION; Start 02/16/17 at 23:00 Lactulose (Enulose) 20 gm DAILY PRN PO CONSTIPATION; Start 02/16/17 at 23:00 Bisacodyl (Dulcolax Supp) 10 mg DAILY PRN [place] CONSTIPATION; Start 02/16/17 at 23: 00 Acetaminophen (Tylenol Tab) 650 mg Q4H PRN PO PAIN; Start 02/16/17 at 23:00 Oxycodone HCl (Roxicodone) 20 mg Q3H PRN PO PAIN Last administered on 10:37; Admin Dose 20 MG; Start 4/8/17 at 09:30 Oxycodone HCl (Oxycontin) 10 mg BID PO Last administered on 02/19/17t 08:12; Admin Dose 10 MG; Start 02/17/17 at 21:00 VANESSA BACON MD Feb 19, 2017 12:05 VANESSA BACON MD Feb 19, 2017 12:05
[2017-02-19] MEDS: RIVAROXABAN 10 MG TABLET PO SCH (16:48)
[2017-02-19] MEDS: PANTOPRAZOLE (EC) 40 MG TAB PO SCH (20:30)
[2017-02-19] MEDS: SENNA TAB PO SCH (20:30)
[2017-02-19 20:56] VITALS: BP 136/63; RESP 18
[2017-02-20] MEDS: ACCUCHECK AT 2AM (Patients on SS coverage) XX SCH (02:00)
[2017-02-20] MEDS: oxyCODONE 5 MG TAB PO PRN ×5 (04:33→23:29)
[2017-02-20 07:41] VITALS: BP 98/59; RESP 18
[2017-02-20] MEDS: metFORMIN 500 MG TAB PO SCH ×2 (07:58→17:16)
[2017-02-20] MEDS: Insulin NOVOLOG SS MILD Algorithm (SS with meals and bedtime) SC SCH ×4 (08:00→20:37)
[2017-02-20] MEDS: DOCUSATE SODIUM 100 MG CAP PO SCH ×2 (08:36→20:34)
[2017-02-20] MEDS: oxyCODONE (CR) 10 MG TAB [oxyCONTIN] PO SCH ×2 (08:36→20:34)
[2017-02-20] MEDS: LISINOPRIL 20 MG TAB PO SCH (08:37)
--- NOTE | 2017-02-20 11:09 | PN ---
DATE: 02/20/2017 SUBJECTIVE: The patient is stable, no acute events overnight. No fevers, chills, nausea, vomiting. OBJECTIVE: VITAL SIGNS: Blood pressure 98/59, respirations 18, pulse 97, temperature 98.2. HEENT: Head is normocephalic. NECK: Supple. HEART: Regular rate. LUNGS: Show diminished breath sounds at the bases. ABDOMEN: Soft, nontender to palpation. No rebound or guarding. EXTREMITIES: Negative for clubbing, cyanosis. No edema in the right leg. Left knee has dressing c lean, dry, intact. DERMATOLOGIC: No rashes. MUSCULOSKELETAL: No joint effusions. NEUROLOGIC: No change in exam. MEDICATIONS: The patient's medications have been reviewed. LABORATORY DATA: Have been reviewed. No new labs. ASSESSMENT AND PLAN: 1. Status post total left knee replacement. The patient is currently stable. Continue PT, OT. Co ntinue pain control. Continue to monitor. 2. Diabetes. Continue current insulin regimen. 3. Hypertension. Current blood pressure regimen and monitor closely. 4. Anemia. Monitor hemoglobin and hematocrit levels. 5. Gastrointestinal and deep venous thrombosis prophylaxis. Continue proton pump inhibitor and Xar elto. 6. Hypomagnesemia, status post magnesium oxide. Dictated By: RASHAWN NUNES DO NR/ETHAN Conf#: [id number] DID#: [id number]
--- NOTE | 2017-02-20 12:47 | CONS ---
Date/Time of Note Date/Time of Note DATE: 02/20/17 TIME: 12:47 Consult Date/Type/Reason Admit Date/Time Feb 16, 2017 at 20:23 Subjective No new complaints Objective pulm-cta abd-soft mod assist Vital Signs Date Time Temp Pulse Resp B/P Pulse Ox O2 Delivery O2 Flow Rate FiO2 02/20/17 07:41 98.2 97 18 98/59 97 02/17/17 19:20 Room Air Intake and Output 02/19/17 02/19/17 02/20/17 14:59 22:59 06:59 Intake Total 980 ml 1100 ml Balance 980 ml 1100 ml Results/Medications Result Diagram: 02/19/17 0600 02/19/17 0600 Results 24 hrs Laboratory Tests Test 02/19/17 17:12 02/19/17 20:08 02/20/17 07:41 02/20/17 12:05 Bedside Glucose 222 H 162 179 206 Medications Current Medications Docusate Sodium (Colace) 100 mg BID PO Last administered on 02/20/17 08:36; Admin Dose 100 MG; Start 02/16/17 at 21:00 Pantoprazole (Protonix Tab) 40 mg HS PO Last administered on 02/19/17 20:30; Admin Dose 40 MG; Start 02/16/17 at 22:30 Lisinopril (Zestril) 20 mg DAILY PO Last administered on 02/19/17 08:12; Admin Dose 20 MG; Start 02/17/17 at 09:00 Senna/Docusate Sodium (Senokot-S) 2 tab HS PRN PO CONSTIPATION; Start 02/16/17 at 21:00 Al Hydrox/Mg Hydrox/Simethicone (Mag-Al Plus) 30 ml Q6H PRN PO GASTROINTESTINAL UPSET Last administered on 02/20/17 12:30; Admin Dose 30 ML; Start 02/16/17 at 21:00 Clonidine (Catapres) 0.1 mg Q8H PRN PO SBP >180; Start 02/16/17 at 21:00 Diphenhydramine HCl (Benadryl) 25 mg Q6H PRN PO ITCHING; Start 02/16/17 at 21:00 Lorazepam (Ativan) 0.5 mg Q8H PRN PO ANXIETY Last administered on 02/17/17 22: 07; Admin Dose 0.5 MG; Start 02/16/17 at 21:00 Phenol (Cepastat Lozenge) 1 lozenge Q2H PRN MT SORE THROAT Last administered on 02/18/17 17:36; Admin Dose 1 LOZENGE; Start 02/16/17 at 21:00 Oxycodone HCl (Roxicodone) 15 mg Q3H PRN PO PAIN Last administered on 02/18/17 03:47; Admin Dose 15 MG; Start 02/16/17 at 21:00 Bisacodyl (Dulcolax Supp) 10 mg Q12H PRN [place] CONSTIPATION; Start 02/16/17 at 21: 00 Naloxone HCl (Narcan) 0.2 mg Q2M PRN IV OPIATE OVERDOSE; Start 02/16/17 at 21:00 Ondansetron HCl (Zofran Inj) 4 mg Q4H PRN IV NAUSEA AND/OR VOMITING; Start 02/16 at 21:00 Hydromorphone HCl (Dilaudid) 1 mg Q3H PRN SC PAIN Last administered on 01:13; Admin Dose 1 MG; Start 02/16/17 at 21:00 Diagnostic Test (Pha) (Accu-Chek) 1 ea 02 XX Last administered on 02/19/17 02: 00; Admin Dose 1 EA; Start 02/17/17 at 02:00 Miscellaneous Information 1 ea NOTE XX ; Start 02/16/17 at 22:30 Glucose (Glutose) 15 gm Q15M PRN PO DECREASED GLUCOSE; Start 02/16/17 at 22:30 Glucose (Glutose) 22.5 gm Q15M PRN PO DECREASED GLUCOSE; Start 02/16/17 at 22:30 Dextrose (D50w Syringe) 25 ml Q15M PRN IV DECREASED GLUCOSE; Start 02/16/17 at 22:30 Dextrose (D50w Syringe) 50 ml Q15M PRN IV DECREASED GLUCOSE; Start 02/16/17 at 22:30 Glucagon (Glucagen) 1 mg Q15M PRN IM DECREASED GLUCOSE; Start 02/16/17 at 22:30 Glucose (Glutose) 15 gm Q15M PRN BUCCAL DECREASED GLUCOSE; Start 02/16/17 at 22: 30 Senna (Senokot) 1 tab HS PO Last administered on 02/19/17 20:30; Admin Dose 1 TAB; Start 02/17/17 at 21:00 Magnesium Hydroxide (Milk Of Mag) 30 ml BID PRN PO CONSTIPATION; Start 02/16/17 at 23:00 Lactulose (Enulose) 20 gm DAILY PRN PO CONSTIPATION; Start 02/16/17 at 23:00 Bisacodyl (Dulcolax Supp) 10 mg DAILY PRN [place] CONSTIPATION; Start 02/16/17 at 23: 00 Acetaminophen (Tylenol Tab) 650 mg Q4H PRN PO PAIN; Start 02/16/17 at 23:00 Oxycodone HCl (Roxicodone) 20 mg Q3H PRN PO PAIN Last administered on 10:31; Admin Dose 20 MG; Start 02/17/17 at 09:30 Oxycodone HCl (Oxycontin) 10 mg BID PO Last administered on 02/20/17 08:36; Admin Dose 10 MG; Start 02/17/17 at 21:00 Assessment/Plan Additional Assessment/Plan Rehab- LTKR Continue rehab program. Pain- conrtinue meds DM HTN VANESSA BACON MD Feb 20, 2017 12:47
[2017-02-20] MEDS: RIVAROXABAN 10 MG TABLET PO SCH (17:16)
[2017-02-20] MEDS: PANTOPRAZOLE (EC) 40 MG TAB PO SCH (20:34)
[2017-02-20] MEDS: SENNA TAB PO SCH (20:34)
[2017-02-20 21:12] VITALS: BP 115/75; RESP 18
[2017-02-21] MEDS: ACCUCHECK AT 2AM (Patients on SS coverage) XX SCH (02:26)
[2017-02-21] MEDS: oxyCODONE 5 MG TAB PO PRN ×4 (07:43→23:21)
[2017-02-21] MEDS: metFORMIN 500 MG TAB PO SCH ×2 (07:44→17:35)
[2017-02-21] MEDS: Insulin NOVOLOG SS MILD Algorithm (SS with meals and bedtime) SC SCH ×4 (07:46→20:48)
[2017-02-21 08:00] VITALS: BP 132/73; RESP 18
[2017-02-21] MEDS: DOCUSATE SODIUM 100 MG CAP PO SCH ×2 (08:54→20:44)
[2017-02-21] MEDS: LISINOPRIL 20 MG TAB PO SCH (08:55)
[2017-02-21] MEDS: oxyCODONE (CR) 10 MG TAB [oxyCONTIN] PO SCH ×2 (10:07→20:45)
--- NOTE | 2017-02-21 10:32 | PN ---
DATE: 02/21/2017 SUBJECTIVE: The patient is stable. No events overnight. No fevers or chills, nausea/vomiting. OBJECTIVE: VITAL SIGNS: Blood pressure 132/73, respiration 18, pulse 103, temperature 98.2. HEENT: Head is normocephalic. NECK: Supple. HEART: Regular rate. LUNGS: Show diminished breath sounds at base. ABDOMEN: Soft, nontender to palpation without rebound or guarding. EXTREMITIES: Negative for clubbing, cyanosis, no edema. MUSCULOSKELETAL: The patient has dressing over left knee. NEUROLOGIC: No change in exam. MEDICATIONS: Have been reviewed. LABORATORY DATA: Has been reviewed. No new labs. ASSESSMENT AND PLAN: 1. Status post left knee replacement is currently stable. Continue PT, OT. Continue pain control. 2. Diabetes. Continue current insulin regimen. 3. Hypertension. Continue current blood pressure regimen. 4. Anemia. Continue to monitor hemoglobin and hematocrit levels. 5. Gastrointestinal and deep venous thrombosis prophylaxis. Continue proton pump inhibitor and Xar elto. 6. Anxiety disorder. Continue Ativan. Dictated By: RASHAWN BEAN/ETHAN Conf#: [id number] DID#: [id number]
--- NOTE | 2017-02-21 11:56 | CONS ---
Date/Time of Note Date/Time of Note DATE: 02/21/17 TIME: 11:56 Consult Date/Type/Reason Admit Date/Time Feb 16, 2017 at 20:23 Subjective No new complaints Objective pulm-cta abd-soft Vital Signs Date Time Temp Pulse Resp B/P Pulse Ox O2 Delivery O2 Flow Rate FiO2 02/21/17 08:00 98.2 103 18 132/73 96 02/17/17 19:20 Room Air Intake and Output 02/20/17 02/20/17 02/21/17 14:59 22:59 06:59 Intake Total 1200 ml 1080 ml 850 ml Output Total 400 ml Balance 1200 ml 680 ml 850 ml Results/Medications Result Diagram: 02/19/17 0600 02/19/17 0600 Results 24 hrs Laboratory Tests Test 02/20/17 12:05 02/20/17 17:11 02/20/17 20:05 02/21/17 02:23 Bedside Glucose 206 156 282 H 152 Test 02/21/17 07:21 Bedside Glucose 152 Medications Current Medications Docusate Sodium (Colace) 100 mg BID PO Last administered on 02/21/17 08:54; Admin Dose 100 MG; Start 02/16/17 at 21:00 Pantoprazole (Protonix Tab) 40 mg HS PO Last administered on 02/20/17 20:34; Admin Dose 40 MG; Start 02/16/17 at 22:30 Lisinopril (Zestril) 20 mg DAILY PO Last administered on 02/21/17 08:55; Admin Dose 20 MG; Start 02/17/17 at 09:00 Senna/Docusate Sodium (Senokot-S) 2 tab HS PRN PO CONSTIPATION; Start 02/16/17 at 21:00 Al Hydrox/Mg Hydrox/Simethicone (Mag-Al Plus) 30 ml Q6H PRN PO GASTROINTESTINAL UPSET Last administered on 02/20/17 12:30; Admin Dose 30 ML; Start 02/16/17 at 21:00 Clonidine (Catapres) 0.1 mg Q8H PRN PO SBP >180; Start 02/16/17 at 21:00 Diphenhydramine HCl (Benadryl) 25 mg Q6H PRN PO ITCHING; Start 02/16/17 at 21:00 Lorazepam (Ativan) 0.5 mg Q8H PRN PO ANXIETY Last administered on 02/17/17 22: 07; Admin Dose 0.5 MG; Start 02/16/17 at 21:00 Phenol (Cepastat Lozenge) 1 lozenge Q2H PRN MT SORE THROAT Last administered on 02/18/17 17:36; Admin Dose 1 LOZENGE; Start 02/16/17 at 21:00 Oxycodone HCl (Roxicodone) 15 mg Q3H PRN PO PAIN Last administered on 02/18/17 03:47; Admin Dose 15 MG; Start 02/16/17 at 21:00 Bisacodyl (Dulcolax Supp) 10 mg Q12H PRN [place] CONSTIPATION; Start 02/16/17 at 21: 00 Naloxone HCl (Narcan) 0.2 mg Q2M PRN IV OPIATE OVERDOSE; Start 02/16/17 at 21:00 Ondansetron HCl (Zofran Inj) 4 mg Q4H PRN IV NAUSEA AND/OR VOMITING; Start 02/16 at 21:00 Hydromorphone HCl (Dilaudid) 1 mg Q3H PRN SC PAIN Last administered on 01:13; Admin Dose 1 MG; Start 02/16/17 at 21:00 Diagnostic Test (Pha) (Accu-Chek) 1 ea 02 XX Last administered on 02/21/17 02: 26; Admin Dose 1 EA; Start 02/17/17 at 02:00 Miscellaneous Information 1 ea NOTE XX ; Start 02/16/17 at 22:30 Glucose (Glutose) 15 gm Q15M PRN PO DECREASED GLUCOSE; Start 02/16/17 at 22:30 Glucose (Glutose) 22.5 gm Q15M PRN PO DECREASED GLUCOSE; Start 02/16/17 at 22:30 Dextrose (D50w Syringe) 25 ml Q15M PRN IV DECREASED GLUCOSE; Start 02/16/17 at 22:30 Dextrose (D50w Syringe) 50 ml Q15M PRN IV DECREASED GLUCOSE; Start 02/16/17 at 22:30 Glucagon (Glucagen) 1 mg Q15M PRN IM DECREASED GLUCOSE; Start 02/16/17 at 22:30 Glucose (Glutose) 15 gm Q15M PRN BUCCAL DECREASED GLUCOSE; Start 02/16/17 at 22: 30 Senna (Senokot) 1 tab HS PO Last administered on 02/20/17 20:34; Admin Dose 1 TAB; Start 02/17/17 at 21:00 Magnesium Hydroxide (Milk Of Mag) 30 ml BID PRN PO CONSTIPATION; Start 02/16/17 at 23:00 Lactulose (Enulose) 20 gm DAILY PRN PO CONSTIPATION; Start 02/16/17 at 23:00 Bisacodyl (Dulcolax Supp) 10 mg DAILY PRN [place] CONSTIPATION; Start 02/16/17 at 23: 00 Acetaminophen (Tylenol Tab) 650 mg Q4H PRN PO PAIN; Start 02/16/17 at 23:00 Oxycodone HCl (Roxicodone) 20 mg Q3H PRN PO PAIN Last administered on 07:43; Admin Dose 20 MG; Start 02/17/17 at 09:30 Oxycodone HCl (Oxycontin) 10 mg BID PO Last administered on 02/21/17 10:07; Admin Dose 10 MG; Start 02/17/17 at 21:00 Assessment/Plan Additional Assessment/Plan Rehab- LTKR Continue rehab program Pain- contineu current meds DM HTN VANESSA BACON MD Feb 21, 2017 11:56
[2017-02-21] MEDS: CEPASTAT LOZENGE MT PRN (13:29)
[2017-02-21] MEDS: RIVAROXABAN 10 MG TABLET PO SCH (17:34)
[2017-02-21] MEDS: SENNA TAB PO SCH (20:44)
[2017-02-21] MEDS: PANTOPRAZOLE (EC) 40 MG TAB PO SCH (20:44)
[2017-02-22] MEDS: ACCUCHECK AT 2AM (Patients on SS coverage) XX SCH (02:00)
[2017-02-22] MEDS: oxyCODONE 5 MG TAB PO PRN ×4 (06:28→20:08)
[2017-02-22 07:30] VITALS: BP 89/52; RESP 18
[2017-02-22] MEDS: HYDROmorphONE 1 MG/ML SYG SC PRN ×2 (07:46→11:04)
[2017-02-22 08:30] VITALS: BP 120/70; PULSE 80
[2017-02-22] MEDS: oxyCODONE (CR) 10 MG TAB [oxyCONTIN] PO SCH ×2 (08:56→23:05)
[2017-02-22] MEDS: DOCUSATE SODIUM 100 MG CAP PO SCH ×2 (08:56→20:51)
[2017-02-22] MEDS: metFORMIN 500 MG TAB PO SCH ×2 (08:56→16:49)
[2017-02-22] MEDS: LISINOPRIL 20 MG TAB PO SCH (08:57)
[2017-02-22] MEDS: Insulin NOVOLOG SS MILD Algorithm (SS with meals and bedtime) SC SCH ×4 (08:59→21:00)
--- NOTE | 2017-02-22 11:18 | PN ---
DATE: 02/22/2017 SUBJECTIVE: The patient is stable, no acute events overnight. No fever, chills, nausea, vomiting. OBJECTIVE: VITAL SIGNS: Blood pressure 89/52, respiration 18, pulse 86, temperature 97.4. HEENT: Head is normocephalic. NECK: Supple. HEART: Regular rate. LUNGS: Show diminished breath sounds at the base. ABDOMEN: Soft, nontender to palpation without rebound or guarding. EXTREMITIES: Negative for clubbing, cyanosis, no edema. MUSCULOSKELETAL: Patient has dressing over left knee clean, dry, intact. NEUROLOGIC: No change in exam. DERMATOLOGIC: No rashes. MEDICATIONS: Patient medications reviewed. LABORATORY DATA: Have been reviewed. No new labs. ASSESSMENT AND PLAN: 1. Status post total left knee replacement. The patient is fairly stable. Continue PT, OT. 2. Diabetes. Continue current insulin regimen. 3. Hypertension. Continue current blood pressure regimen. 4. Monitor H and H levels. 5. Gastrointestinal and deep venous thrombosis prophylaxis. Continue proton pump inhibitor and Xar elto. 6. Anxiety disorder. Continue Ativan. Dictated By: RASHAWN BEAN/ETHAN Conf#: [id number] DID#: [id number]
--- NOTE | 2017-02-22 12:50 | CONS ---
Date/Time of Note Date/Time of Note DATE: 02/22/17 TIME: 12:48 Consult Date/Type/Reason Admit Date/Time Feb 16, 2017 at 20:23 Subjective Still with pain. Also reports increased stiffness of leg Objective pulm-cta abd-soft LLE min swelling Vital Signs Date Time Temp Pulse Resp B/P Pulse Ox O2 Delivery O2 Flow Rate FiO2 02/22/17 07:30 97.4 86 18 89/52 96 Intake and Output 02/21/17 02/21/17 02/22/17 15:00 23:00 07:00 Intake Total 1200 ml 1080 ml 550 ml Output Total 650 ml 300 ml Balance 550 ml 780 ml 550 ml Results/Medications Result Diagram: 02/19/17 0600 02/19/17 0600 Results 24 hrs Laboratory Tests Test 02/21/17 17:29 02/21/17 20:47 02/22/17 07:29 02/22/17 12:05 Bedside Glucose 167 173 161 191 Medications Current Medications Docusate Sodium (Colace) 100 mg BID PO Last administered on 02/22/17 08:56; Admin Dose 100 MG; Start 02/16/17 at 21:00 Pantoprazole (Protonix Tab) 40 mg HS PO Last administered on 02/21/17 20:44; Admin Dose 40 MG; Start 02/16/17 at 22:30 Lisinopril (Zestril) 20 mg DAILY PO Last administered on 02/22/17 08:57; Admin Dose 20 MG; Start 02/17/17 at 09:00 Senna/Docusate Sodium (Senokot-S) 2 tab HS PRN PO CONSTIPATION; Start 02/16/17 at 21:00 Al Hydrox/Mg Hydrox/Simethicone (Mag-Al Plus) 30 ml Q6H PRN PO GASTROINTESTINAL UPSET Last administered on 02/20/17 12:30; Admin Dose 30 ML; Start 02/16/17 at 21:00 Clonidine (Catapres) 0.1 mg Q8H PRN PO SBP >180; Start 02/16/17 at 21:00 Diphenhydramine HCl (Benadryl) 25 mg Q6H PRN PO ITCHING; Start 02/16/17 at 21:00 Lorazepam (Ativan) 0.5 mg Q8H PRN PO ANXIETY Last administered on 02/17/17 22: 07; Admin Dose 0.5 MG; Start 02/16/17 at 21:00 Phenol (Cepastat Lozenge) 1 lozenge Q2H PRN [place] SORE THROAT Last administered on 02/21/17 13:29; Admin Dose 1 LOZENGE; Start 02/16/17 at 21:00 Oxycodone HCl (Roxicodone) 15 mg Q3H PRN PO PAIN Last administered on 02/18/17 03:47; Admin Dose 15 MG; Start 02/16/17 at 21:00 Bisacodyl (Dulcolax Supp) [address] CONSTIPATION; Start 02/16/17 at 21: 00 Naloxone HCl (Narcan) 0.2 mg Q2M PRN IV OPIATE OVERDOSE; Start 02/16/17 at 21:00 Ondansetron HCl (Zofran Inj) 4 mg Q4H PRN IV NAUSEA AND/OR VOMITING; Start 02/16 at 21:00 Hydromorphone HCl (Dilaudid) 1 mg Q3H PRN SC PAIN Last administered on 11:04; Admin Dose 1 MG; Start 02/16/17 at 21:00 Diagnostic Test (Pha) (Accu-Chek) 1 ea 02 XX Last administered on 02/21/17 02: 26; Admin Dose 1 EA; Start 02/17/17 at 02:00 Miscellaneous Information 1 ea NOTE XX ; Start 02/16/17 at 22:30 Glucose (Glutose) 15 gm Q15M PRN PO DECREASED GLUCOSE; Start 02/16/17 at 22:30 Glucose (Glutose) 22.5 gm Q15M PRN PO DECREASED GLUCOSE; Start 02/16/17 at 22:30 Dextrose (D50w Syringe) 25 ml Q15M PRN IV DECREASED GLUCOSE; Start 02/16/17 at 22:30 Dextrose (D50w Syringe) 50 ml Q15M PRN IV DECREASED GLUCOSE; Start 02/16/17 at 22:30 Glucagon (Glucagen) 1 mg Q15M PRN IM DECREASED GLUCOSE; Start 02/16/17 at 22:30 Glucose (Glutose) 15 gm Q15M PRN BUCCAL DECREASED GLUCOSE; Start 02/16/17 at 22: 30 Senna (Senokot) 1 tab HS PO Last administered on 02/21/17 20:44; Admin Dose 1 TAB; Start 02/17/17 at 21:00 Magnesium Hydroxide (Milk Of Mag) 30 ml BID PRN PO CONSTIPATION; Start 02/16/17 at 23:00 Lactulose (Enulose) 20 gm DAILY PRN PO CONSTIPATION; Start 02/16/17 at 23:00 Bisacodyl (Dulcolax Supp) [address] CONSTIPATION; Start 02/16/17 at 23: 00 Acetaminophen (Tylenol Tab) 650 mg Q4H PRN PO PAIN; Start 02/16/17 at 23:00 Oxycodone HCl (Roxicodone) 20 mg Q3H PRN PO PAIN Last administered on 06:28; Admin Dose 20 MG; Start 02/17/17 at 09:30 Oxycodone HCl (Oxycontin) 10 mg BID PO Last administered on 02/22/17 08:56; Admin Dose 10 MG; Start 02/17/17 at 21:00 Assessment/Plan Additional Assessment/Plan Rehab- LTKR Continue activities as tolerated. LLE swelling- will check venous duplex Pain- premedicate before therapies DM HTN VANESSA BACON MD Feb 22, 2017 12:50
--- NOTE | 2017-02-22 14:14 | RADRPT ---
PROCEDURE: US Lower extremity Venous. CLINICAL INDICATION: Left leg pain TECHNIQUE: Multiple sonographic images of the left lower extremity deep venous system was obtained utilizing grayscale, color-flow, compressive sonography and doppler imaging with augmentation. The images were reviewed on a PACS workstation. COMPARISON: None. FINDINGS: There is normal compressibility and flow within the left common femoral, femoral, posterior tibial, peroneal and popliteal veins. RPTAT: AA IMPRESSION: No sonographic evidence for deep venous thrombosis. .Justen Butt MD, MD Date Time Electronically viewed and signed by .Justen Butt MD, on 02/22/2017 14:14 .S/
[2017-02-22] MEDS: RIVAROXABAN 10 MG TABLET PO SCH (16:49)
[2017-02-22 19:37] VITALS: BP 104/63; RESP 18
[2017-02-22] MEDS: PANTOPRAZOLE (EC) 40 MG TAB PO SCH (20:51)
[2017-02-22] MEDS: SENNA TAB PO SCH (20:51)
[2017-02-23] MEDS: ACCUCHECK AT 2AM (Patients on SS coverage) XX SCH (02:00)
[2017-02-23] MEDS: oxyCODONE 5 MG TAB PO PRN ×3 (02:08→17:51)
[2017-02-23] MEDS: HYDROmorphONE 1 MG/ML SYG SC PRN ×5 (06:13→18:57)
[2017-02-23 06:30] LABS: ADD SCAN DIFF NO
[2017-02-23 06:37] LABS: BASOPHIL # 0.1 10^3/ul (0.0-0.1); BASOPHILS % 0.5 % (0.0-2.0); EOSINOPHILS # 0.4 10^3/ul (0.0-0.5); EOSINOPHILS % 4.3 % (0.0-7.0); HEMATOCRIT 30.3 % (37.0-47.0); HEMOGLOBIN 9.8 g/dl (12.0-16.0); LYMPHOCYTES # 2.6 10^3/ul (0.8-2.9); LYMPHOCYTES % 26.3 % (15.0-51.0); MEAN CORPUSCULAR HEMOGLOBIN 28.7 pg (29.0-33.0); MEAN CORPUSCULAR HGB CONC 32.3 g/dl (32.0-37.0); MEAN CORPUSCULAR VOLUME 88.9 fl (82.0-101.0); MEAN PLATELET VOLUME 8.7 fl (7.4-10.4); MONOCYTE # 0.8 10^3/ul (0.3-0.9); MONOCYTES % 7.6 % (0.0-11.0); NEUTROPHILS % 60.3 % (39.0-77.0); PLATELET COUNT 601 10^3/UL (140-415); RED BLOOD COUNT 3.41 10^6/ul (4.20-5.40); RED CELL DISTRIBUTION WIDTH 12.4 % (11.5-14.5)
[2017-02-23 06:59] LABS: POTASSIUM 4.3 mmol/L (3.5-5.1)
[2017-02-23 07:02] LABS: CREATININE 0.64 mg/dl (0.44-1.00)
[2017-02-23 07:03] LABS: CALCIUM 8.6 mg/dl (8.4-10.2); MAGNESIUM 1.6 mg/dl (1.7-2.5)
[2017-02-23] MEDS: oxyCODONE (CR) 10 MG TAB [oxyCONTIN] PO SCH ×2 (08:13→20:23)
[2017-02-23 08:19] VITALS: BP 117/73; RESP 18
[2017-02-23] MEDS: metFORMIN 500 MG TAB PO SCH ×2 (08:42→17:46)
[2017-02-23] MEDS: LORAZEPAM 0.5 MG TAB PO PRN (08:43)
[2017-02-23] MEDS: DOCUSATE SODIUM 100 MG CAP PO SCH ×2 (08:45→20:19)
[2017-02-23] MEDS: LISINOPRIL 20 MG TAB PO SCH (08:45)
[2017-02-23] MEDS: Insulin NOVOLOG SS MILD Algorithm (SS with meals and bedtime) SC SCH ×4 (09:50→20:25)
[2017-02-23] MEDS ORDERED: MAGNESIUM OXIDE 400 MG TAB PO ONE (11:00)
--- NOTE | 2017-02-23 11:40 | PN ---
DATE: SUBJECTIVE: The patient is stable, no acute events overnight. No fevers, chills, nausea, vomiting. OBJECTIVE: VITAL SIGNS: Blood pressure is 117/73, respirations 18, pulse 88, temperature 98.5. HEENT: Head is normocephalic. NECK: Supple. HEART: Regular rate. LUNGS: Show diminished breath sounds at the base. ABDOMEN: Soft, nontender to palpation, no rebound or guarding. EXTREMITIES: Negative for clubbing, cyanosis, no edema. DERMATOLOGIC: No rashes. MUSCULOSKELETAL: No joint effusions. NEUROLOGIC: No change in exam. MEDICATIONS: The patient's medications have been reviewed. LABORATORY DATA: Shows a sodium 136, potassium 4.3, BUN is 13, creatinine 0.65, magnesium 1.6. Whi te count 10.0, hemoglobin 9.8, hematocrit 30.3, platelet count is 601. IMAGING: The patient's Doppler ultrasound is negative. ASSESSMENT AND PLAN: 1. Status post left knee replacement. The patient is currently stable. Continue PT, OT. Continue pain control. 2. Diabetes. Continue current insulin regimen. Continue Accu-Cheks and insulin sliding scale. 3. Hypertension. Continue current blood pressure regimen. 4. Anemia. Hemoglobin levels have been stable. Continue to monitor. 5. Hypomagnesemia. Replete with magnesium sulfate. 6. Anxiety disorder. Continue Ativan. 7. Gastrointestinal and deep venous thrombosis prophylaxis. Continue proton pump inhibitor and Xar elto. Dictated By: RASHAWN BEAN/ETHAN Conf#: [id number] DID#: [id number]
--- NOTE | 2017-02-23 11:45 | CONS ---
Date/Time of Note Date/Time of Note DATE: 02/23/17 TIME: 11:43 Consult Date/Type/Reason Admit Date/Time Feb 16, 2017 at 20:23 Subjective Improving Objective pulm-cta abd-soft cga/sba 150 feet Vital Signs Date Time Temp Pulse Resp B/P Pulse Ox O2 Delivery O2 Flow Rate FiO2 02/23/17 08:19 98.5 88 18 117/73 96 Intake and Output 02/22/17 02/22/17 02/23/17 14:59 22:59 06:59 Intake Total 240 ml 360 ml Output Total 750 ml 300 ml Balance -510 ml 360 ml -300 ml Results/Medications Result Diagram: 02/23/17 0555 02/23/17 0555 Results 24 hrs Laboratory Tests Test 02/22/17 12:05 02/22/17 17:16 02/22/17 20:28 02/23/17 05:55 Bedside Glucose 191 169 140 White Blood Count 10.0 Red Blood Count 3.41 L Hemoglobin 9.8 L Hematocrit 30.3 L Mean Corpuscular Volume 88.9 Mean Corpuscular Hemoglobin 28.7 L Mean Corpuscular Hemoglobin Concent 32.3 Red Cell Distribution Width 12.4 Platelet Count 601 #H Mean Platelet Volume 8.7 Neutrophils % 60.3 Lymphocytes % 26.3 Monocytes % 7.6 Eosinophils % 4.3 Basophils % 0.5 Nucleated Red Blood Cells % 0.0 Neutrophils # 6.0 Lymphocytes # 2.6 Monocytes # 0.8 Eosinophils # 0.4 Basophils # 0.1 Nucleated Red Blood Cells # 0.0 Sodium Level 136 Potassium Level 4.3 Chloride Level 99 Carbon Dioxide Level 27 Anion Gap 14 Blood Urea Nitrogen 13 Creatinine 0.64 Glucose Level 160 Calcium Level 8.6 Phosphorus Level 4.0 Magnesium Level 1.6 L Test 02/23/17 07:31 Bedside Glucose 151 Medications Current Medications Docusate Sodium (Colace) 100 mg BID PO Last administered on 02/23/17 08:45; Admin Dose 100 MG; Start 02/16/17 at 21:00 Pantoprazole (Protonix Tab) 40 mg HS PO Last administered on 02/22/17 20:51; Admin Dose 40 MG; Start 02/16/17 at 22:30 Lisinopril (Zestril) 20 mg DAILY PO Last administered on 02/23/17 08:45; Admin Dose 20 MG; Start 02/17/17 at 09:00 Senna/Docusate Sodium (Senokot-S) 2 tab HS PRN PO CONSTIPATION; Start 02/16/17 at 21:00 Al Hydrox/Mg Hydrox/Simethicone (Mag-Al Plus) 30 ml Q6H PRN PO GASTROINTESTINAL UPSET Last administered on 02/20/17 12:30; Admin Dose 30 ML; Start 02/16/17 at 21:00 Clonidine (Catapres) 0.1 mg Q8H PRN PO SBP >180; Start 02/16/17 at 21:00 Diphenhydramine HCl (Benadryl) 25 mg Q6H PRN PO ITCHING; Start 02/16/17 at 21:00 Lorazepam (Ativan) 0.5 mg Q8H PRN PO ANXIETY Last administered on 02/23/17 08: 43; Admin Dose 0.5 MG; Start 02/16/17 at 21:00 Phenol (Cepastat Lozenge) 1 lozenge Q2H PRN [place] SORE THROAT Last administered on 02/21/17 13:29; Admin Dose 1 LOZENGE; Start 02/16/17 at 21:00 Oxycodone HCl (Roxicodone) 15 mg Q3H PRN PO PAIN Last administered on 02/18/17 03:47; Admin Dose 15 MG; Start 02/16/17 at 21:00 Bisacodyl (Dulcolax Supp) 10 mg Q12H PRN [place] CONSTIPATION; Start 02/16/17 at 21: 00 Naloxone HCl (Narcan) 0.2 mg Q2M PRN IV OPIATE OVERDOSE; Start 02/16/17 at 21:00 Ondansetron HCl (Zofran Inj) 4 mg Q4H PRN IV NAUSEA AND/OR VOMITING; Start 02/16 at 21:00 Hydromorphone HCl (Dilaudid) 1 mg Q3H PRN SC PAIN Last administered on 09:32; Admin Dose 1 MG; Start 02/16/17 at 21:00 Diagnostic Test (Pha) (Accu-Chek) 1 ea 02 XX Last administered on 02/21/17 02: 26; Admin Dose 1 EA; Start 02/17/17 at 02:00 Miscellaneous Information 1 ea NOTE XX ; Start 02/16/17 at 22:30 Glucose (Glutose) 15 gm Q15M PRN PO DECREASED GLUCOSE; Start 02/16/17 at 22:30 Glucose (Glutose) 22.5 gm Q15M PRN PO DECREASED GLUCOSE; Start 02/16/17 at 22:30 Dextrose (D50w Syringe) 25 ml Q15M PRN IV DECREASED GLUCOSE; Start 02/16/17 at 22:30 Dextrose (D50w Syringe) 50 ml Q15M PRN IV DECREASED GLUCOSE; Start 02/16/17 at 22:30 Glucagon (Glucagen) 1 mg Q15M PRN IM DECREASED GLUCOSE; Start 02/16/17 at 22:30 Glucose (Glutose) 15 gm Q15M PRN BUCCAL DECREASED GLUCOSE; Start 02/16/17 at 22: 30 Senna (Senokot) 1 tab HS PO Last administered on 02/22/17 20:51; Admin Dose 1 TAB; Start 02/17/17 at 21:00 Magnesium Hydroxide (Milk Of Mag) 30 ml BID PRN PO CONSTIPATION; Start 02/16/17 at 23:00 Lactulose (Enulose) 20 gm DAILY PRN PO CONSTIPATION; Start 02/16/17 at 23:00 Bisacodyl (Dulcolax Supp) 10 mg DAILY PRN [place] CONSTIPATION; Start 02/16/17 at 23: 00 Acetaminophen (Tylenol Tab) 650 mg Q4H PRN PO PAIN; Start 02/16/17 at 23:00 Oxycodone HCl (Roxicodone) 20 mg Q3H PRN PO PAIN Last administered on 02:08; Admin Dose 20 MG; Start 02/17/17 at 09:30 Oxycodone HCl (Oxycontin) 10 mg BID PO Last administered on 02/23/17 08:13; Admin Dose 10 MG; Start 02/17/17 at 21:00 Assessment/Plan Additional Assessment/Plan Rehab- LTKR Continue rehab activities LLE swelling- venous duplex (-) Pain- premedicate before therapies DM HTN VANESSA BACON MD Feb 23, 2017 11:44
[2017-02-23] MEDS: RIVAROXABAN 10 MG TABLET PO SCH (17:39)
[2017-02-23 20:06] VITALS: BP 94/55; RESP 18
[2017-02-23] MEDS: SENNA TAB PO SCH (20:19)
[2017-02-23] MEDS: PANTOPRAZOLE (EC) 40 MG TAB PO SCH (20:19)
[2017-02-24] MEDS: HYDROmorphONE 1 MG/ML SYG SC PRN (00:12)
[2017-02-24] MEDS: ACCUCHECK AT 2AM (Patients on SS coverage) XX SCH (02:00)
[2017-02-24] MEDS: oxyCODONE 5 MG TAB PO PRN ×5 (07:20→22:59)
--- NOTE | 2017-02-24 07:42 | CONS ---
Date/Time of Note Date/Time of Note DATE: 02/24/17 TIME: 07:42 Consult Date/Type/Reason Admit Date/Time Feb 16, 2017 at 20:23 Subjective No new complaints Objective Pulm-cta abd-soft sba ambulation 150 feet Vital Signs Date Time Temp Pulse Resp B/P Pulse Ox O2 Delivery O2 Flow Rate FiO2 02/23/17 20:06 98.3 107 18 94/55 95 Intake and Output 02/23/17 02/23/17 02/24/17 15:00 23:00 07:00 Intake Total 1200 ml 600 ml 300 ml Output Total 200 ml Balance 1000 ml 600 ml 300 ml Results/Medications Result Diagram: 02/23/17 0555 02/23/17 0555 Results 24 hrs Laboratory Tests Test 02/23/17 12:12 02/23/17 17:09 02/23/17 20:17 02/24/17 07:31 Bedside Glucose 171 233 H 160 142 Medications Current Medications Docusate Sodium (Colace) 100 mg BID PO Last administered on 02/23/17 20:19; Admin Dose 100 MG; Start 02/16/17 at 21:00 Pantoprazole (Protonix Tab) 40 mg HS PO Last administered on 02/23/17 20:19; Admin Dose 40 MG; Start 02/16/17 at 22:30 Lisinopril (Zestril) 20 mg DAILY PO Last administered on 02/23/17 08:45; Admin Dose 20 MG; Start 02/17/17 at 09:00 Senna/Docusate Sodium (Senokot-S) 2 tab HS PRN PO CONSTIPATION; Start 02/16/17 at 21:00 Al Hydrox/Mg Hydrox/Simethicone (Mag-Al Plus) 30 ml Q6H PRN PO GASTROINTESTINAL UPSET Last administered on 02/20/17 12:30; Admin Dose 30 ML; Start 02/16/17 at 21:00 Clonidine (Catapres) 0.1 mg Q8H PRN PO SBP >180; Start 02/16/17 at 21:00 Diphenhydramine HCl (Benadryl) 25 mg Q6H PRN PO ITCHING; Start 02/16/17 at 21:00 Lorazepam (Ativan) 0.5 mg Q8H PRN PO ANXIETY Last administered on 02/23/17 08: 43; Admin Dose 0.5 MG; Start 02/16/17 at 21:00 Phenol (Cepastat Lozenge) 1 lozenge Q2H PRN [place] SORE THROAT Last administered on 02/21/17 13:29; Admin Dose 1 LOZENGE; Start 02/16/17 at 21:00 Oxycodone HCl (Roxicodone) 15 mg Q3H PRN PO PAIN Last administered on 02/18/17 03:47; Admin Dose 15 MG; Start 02/16/17 at 21:00 Bisacodyl (Dulcolax Supp) 10 mg Q12H PRN [place] CONSTIPATION; Start 02/16/17 at 21: 00 Naloxone HCl (Narcan) 0.2 mg Q2M PRN IV OPIATE OVERDOSE; Start 02/16/17 at 21:00 Ondansetron HCl (Zofran Inj) 4 mg Q4H PRN IV NAUSEA AND/OR VOMITING; Start 02/16 at 21:00 Hydromorphone HCl (Dilaudid) 1 mg Q3H PRN SC PAIN Last administered on 00:12; Admin Dose 1 MG; Start 02/16/17 at 21:00 Diagnostic Test (Pha) (Accu-Chek) 1 ea 02 XX Last administered on 02/21/17 02: 26; Admin Dose 1 EA; Start 02/17/17 at 02:00 Miscellaneous Information 1 ea NOTE XX ; Start 02/16/17 at 22:30 Glucose (Glutose) 15 gm Q15M PRN PO DECREASED GLUCOSE; Start 02/16/17 at 22:30 Glucose (Glutose) 22.5 gm Q15M PRN PO DECREASED GLUCOSE; Start 02/16/17 at 22:30 Dextrose (D50w Syringe) 25 ml Q15M PRN IV DECREASED GLUCOSE; Start 02/16/17 at 22:30 Dextrose (D50w Syringe) 50 ml Q15M PRN IV DECREASED GLUCOSE; Start 02/16/17 at 22:30 Glucagon (Glucagen) 1 mg Q15M PRN IM DECREASED GLUCOSE; Start 02/16/17 at 22:30 Glucose (Glutose) 15 gm Q15M PRN BUCCAL DECREASED GLUCOSE; Start 02/16/17 at 22: 30 Senna (Senokot) 1 tab HS PO Last administered on 02/23/17 20:19; Admin Dose 1 TAB; Start 02/17/17 at 21:00 Magnesium Hydroxide (Milk Of Mag) 30 ml BID PRN PO CONSTIPATION; Start 02/16/17 at 23:00 Lactulose (Enulose) 20 gm DAILY PRN PO CONSTIPATION; Start 02/16/17 at 23:00 Bisacodyl (Dulcolax Supp) 10 mg DAILY PRN [place] CONSTIPATION; Start 02/16/17 at 23: 00 Acetaminophen (Tylenol Tab) 650 mg Q4H PRN PO PAIN; Start 02/16/17 at 23:00 Oxycodone HCl (Roxicodone) 20 mg Q3H PRN PO PAIN Last administered on 07:20; Admin Dose 20 MG; Start 02/17/17 at 09:30 Oxycodone HCl (Oxycontin) 10 mg BID PO Last administered on 02/23/17 20:23; Admin Dose 10 MG; Start 02/17/17 at 21:00 Assessment/Plan Additional Assessment/Plan rehab- L TKR [facility] with rehab DM HTN-stable VANESSA BACON MD Feb 24, 2017 07:42
[2017-02-24 08:35] VITALS: BP 100/58; RESP 18
[2017-02-24] MEDS: LISINOPRIL 20 MG TAB PO SCH (09:00)
[2017-02-24] MEDS: Insulin NOVOLOG SS MILD Algorithm (SS with meals and bedtime) SC SCH ×4 (09:05→20:19)
[2017-02-24] MEDS: oxyCODONE (CR) 10 MG TAB [oxyCONTIN] PO SCH ×2 (09:07→20:18)
[2017-02-24] MEDS: metFORMIN 500 MG TAB PO SCH ×2 (09:07→17:59)
[2017-02-24] MEDS: DOCUSATE SODIUM 100 MG CAP PO SCH ×2 (09:07→20:18)
--- NOTE | 2017-02-24 11:40 | PN ---
Date/Time of Note Date/Time of Note DATE: 02/24/17 TIME: 11:40 Assessment/Plan VTE Prophylaxis VTE Prophylaxis Intervention: other Lines/Catheters Urinary Cath still in place: No Assessment/Plan Assessment/Plan 1. Status post left knee replacement. The patient is currently stable. Continue PT, OT. Continue pain control. 2. Diabetes. Continue current insulin regimen. Continue Accu-Cheks and insulin sliding scale. 3. Hypertension. Continue current blood pressure regimen. 4. Anemia. Hemoglobin levels have been stable. Continue to monitor. 5. Hypomagnesemia. Replete with magnesium sulfate. 6. Anxiety disorder. Continue Ativan. 7. Gastrointestinal and deep venous thrombosis prophylaxis. Continue proton pump inhibitor and Xarelto. Subjective 24 Hr Interval Summary Free Text/Dictation SUBJECTIVE: The patient is stable, no acute events overnight. No fevers, chills, nausea, vomiting. OBJECTIVE: HEENT: Head is normocephalic. NECK: Supple. HEART: Regular rate. LUNGS: Show diminished breath sounds at the base. ABDOMEN: Soft, nontender to palpation, no rebound or guarding. EXTREMITIES: Negative for clubbing, cyanosis, no edema. DERMATOLOGIC: No rashes. MUSCULOSKELETAL: No joint effusions. NEUROLOGIC: No change in exam. MEDICATIONS: The patient's medications have been reviewed. IMAGING: The patient's Doppler ultrasound is negative. Exam/Review of Systems Vital Signs Vitals Vital Signs Date Time Temp Pulse Resp B/P Pulse Ox O2 Delivery O2 Flow Rate FiO2 02/24/17 08:35 98.1 105 18 100/58 95 Intake and Output 02/23/17 02/23/17 02/24/17 15:00 23:00 07:00 Intake Total 1200 ml 600 ml 300 ml Output Total 200 ml Balance 1000 ml 600 ml 300 ml Results Result Diagram: 02/23/17 0555 02/23/17 0555 Results 24 hrs Laboratory Tests Test 02/23/17 12:12 02/23/17 17:09 02/23/17 20:17 02/24/17 07:31 Bedside Glucose 171 233 H 160 142 Test 02/24/17 09:03 Bedside Glucose 237 H Medications Medications Current Medications Docusate Sodium (Colace) 100 mg BID PO Last administered on 02/24/17t 09:07; Admin Dose 100 MG; Start 02/16/17 at 21:00 Pantoprazole (Protonix Tab) 40 mg HS PO Last administered on 02/23/17 20:19; Admin Dose 40 MG; Start 02/16/17 at 22:30 Lisinopril (Zestril) 20 mg DAILY PO Last administered on 02/23/17 08:45; Admin Dose 20 MG; Start 02/17/17 at 09:00 Senna/Docusate Sodium (Senokot-S) 2 tab HS PRN PO CONSTIPATION; Start 02/16/17 at 21:00 Al Hydrox/Mg Hydrox/Simethicone (Mag-Al Plus) 30 ml Q6H PRN PO GASTROINTESTINAL UPSET Last administered on 02/20/17 12:30; Admin Dose 30 ML; Start 02/16/17 at 21:00 Clonidine (Catapres) 0.1 mg Q8H PRN PO SBP >180; Start 02/16/17 at 21:00 Diphenhydramine HCl (Benadryl) 25 mg Q6H PRN PO ITCHING; Start 02/16/17 at 21:00 Lorazepam (Ativan) 0.5 mg Q8H PRN PO ANXIETY Last administered on 02/23/17 08: 43; Admin Dose 0.5 MG; Start 02/16/17 at 21:00 Phenol (Cepastat Lozenge) 1 lozenge Q2H PRN [place] SORE THROAT Last administered on 02/21/17 13:29; Admin Dose 1 LOZENGE; Start 02/16/17 at 21:00 Oxycodone HCl (Roxicodone) 15 mg Q3H PRN PO PAIN Last administered on 02/18/17 03:47; Admin Dose 15 MG; Start 02/16/17 at 21:00 Bisacodyl (Dulcolax Supp) 10 mg Q12H PRN [place] CONSTIPATION; Start 02/16/17 at 21: 00 Naloxone HCl (Narcan) 0.2 mg Q2M PRN IV OPIATE OVERDOSE; Start 02/16/17 at 21:00 Ondansetron HCl (Zofran Inj) 4 mg Q4H PRN IV NAUSEA AND/OR VOMITING; Start 02/16 at 21:00 Hydromorphone HCl (Dilaudid) 1 mg Q3H PRN SC PAIN Last administered on 00:12; Admin Dose 1 MG; Start 02/16/17 at 21:00 Diagnostic Test (Pha) (Accu-Chek) 1 ea 02 XX Last administered on 02/21/17 02: 26; Admin Dose 1 EA; Start 02/17/17 at 02:00 Miscellaneous Information 1 ea NOTE XX ; Start 02/16/17 at 22:30 Glucose (Glutose) 15 gm Q15M PRN PO DECREASED GLUCOSE; Start 02/16/17 at 22:30 Glucose (Glutose) 22.5 gm Q15M PRN PO DECREASED GLUCOSE; Start 02/16/17 at 22:30 Dextrose (D50w Syringe) 25 ml Q15M PRN IV DECREASED GLUCOSE; Start 02/16/17 at 22:30 Dextrose (D50w Syringe) 50 ml Q15M PRN IV DECREASED GLUCOSE; Start 02/16/17 at 22:30 Glucagon (Glucagen) 1 mg Q15M PRN IM DECREASED GLUCOSE; Start 02/16/17 at 22:30 Glucose (Glutose) 15 gm Q15M PRN BUCCAL DECREASED GLUCOSE; Start 02/16/17 at 22: 30 Senna (Senokot) 1 tab HS PO Last administered on 02/23/17 20:19; Admin Dose 1 TAB; Start 02/17/17 at 21:00 Magnesium Hydroxide (Milk Of Mag) 30 ml BID PRN PO CONSTIPATION; Start 02/16/17 at 23:00 Lactulose (Enulose) 20 gm DAILY PRN PO CONSTIPATION; Start 02/16/17 at 23:00 Bisacodyl (Dulcolax Supp) 10 mg DAILY PRN [place] CONSTIPATION; Start 02/16/17 at 23: 00 Acetaminophen (Tylenol Tab) 650 mg Q4H PRN PO PAIN; Start 02/16/17 at 23:00 Oxycodone HCl (Roxicodone) 20 mg Q3H PRN PO PAIN Last administered on 10:37; Admin Dose 20 MG; Start 02/17/17 at 09:30 Oxycodone HCl (Oxycontin) 10 mg BID PO Last administered on 02/24/17 09:07; Admin Dose 10 MG; Start 02/17/17 at 21:00 DEVEN VO DO Feb 24, 2017 11:40
[2017-02-24] MEDS: RIVAROXABAN 10 MG TABLET PO SCH (17:59)
[2017-02-24 20:10] VITALS: BP 119/73; PULSE 87; RESP 20
[2017-02-24] MEDS: PANTOPRAZOLE (EC) 40 MG TAB PO SCH (20:18)
[2017-02-24] MEDS: SENNA TAB PO SCH (20:18)
[2017-02-25] MEDS: oxyCODONE 5 MG TAB PO PRN ×4 (01:59→22:59)
[2017-02-25] MEDS: ACCUCHECK AT 2AM (Patients on SS coverage) XX SCH (01:59)
[2017-02-25] MEDS: Insulin NOVOLOG SS MILD Algorithm (SS with meals and bedtime) SC SCH ×4 (07:05→20:26)
[2017-02-25 07:30] VITALS: BP 116/77; RESP 18
[2017-02-25] MEDS: oxyCODONE (CR) 10 MG TAB [oxyCONTIN] PO SCH ×2 (08:07→20:25)
[2017-02-25] MEDS: DOCUSATE SODIUM 100 MG CAP PO SCH ×2 (08:07→20:25)
[2017-02-25] MEDS: LISINOPRIL 20 MG TAB PO SCH (08:08)
[2017-02-25] MEDS: metFORMIN 500 MG TAB PO SCH ×2 (08:08→17:25)
--- NOTE | 2017-02-25 12:25 | PN ---
Date/Time of Note Date/Time of Note DATE: 02/25/17 TIME: 12:25 Assessment/Plan VTE Prophylaxis VTE Prophylaxis Intervention: other Lines/Catheters Urinary Cath still in place: No Assessment/Plan Assessment/Plan 1. Status post left knee replacement. The patient is currently stable. Continue PT, OT. Continue pain control. 2. Diabetes. Continue current insulin regimen. Continue Accu-Cheks and insulin sliding scale. 3. Hypertension. Continue current blood pressure regimen. 4. Anemia. Hemoglobin levels have been stable. Continue to monitor. 5. Hypomagnesemia. Replete with magnesium sulfate. 6. Anxiety disorder. Continue Ativan. 7. Gastrointestinal and deep venous thrombosis prophylaxis. Continue proton pump inhibitor and Xarelto. Subjective 24 Hr Interval Summary Free Text/Dictation internal medicine follow up SUBJECTIVE: The patient is stable, no acute events overnight. No fevers, chills, nausea, vomiting. OBJECTIVE: HEENT: Head is normocephalic. NECK: Supple. HEART: Regular rate. LUNGS: Show diminished breath sounds at the base. ABDOMEN: Soft, nontender to palpation, no rebound or guarding. EXTREMITIES: Negative for clubbing, cyanosis, no edema. DERMATOLOGIC: No rashes. MUSCULOSKELETAL: No joint effusions. NEUROLOGIC: No change in exam. MEDICATIONS: The patient's medications have been reviewed. IMAGING: The patient's Doppler ultrasound is negative. Exam/Review of Systems Vital Signs Vitals Vital Signs Date Time Temp Pulse Resp B/P Pulse Ox O2 Delivery O2 Flow Rate FiO2 02/25/17 07:30 97.7 100 18 116/77 96 02/24/17 20:10 Room Air Intake and Output 02/24/17 02/24/17 02/25/17 15:00 23:00 07:00 Intake Total 360 ml Balance 360 ml Results Result Diagram: 02/23/17 0555 02/23/17 0555 Results 24 hrs Laboratory Tests Test 02/24/17 17:20 02/24/17 20:15 02/25/17 01:58 02/25/17 07:37 Bedside Glucose 136 190 149 123 Test 02/25/17 11:56 Bedside Glucose 166 Medications Medications Current Medications Docusate Sodium (Colace) 100 mg BID PO Last administered on 02/25/17t 08:07; Admin Dose 100 MG; Start 02/16/17 at 21:00 Pantoprazole (Protonix Tab) 40 mg HS PO Last administered on 02/24/17 20:18; Admin Dose 40 MG; Start 02/16/17 at 22:30 Lisinopril (Zestril) 20 mg DAILY PO Last administered on 02/25/17 08:08; Admin Dose 20 MG; Start 02/17/17 at 09:00 Senna/Docusate Sodium (Senokot-S) 2 tab HS PRN PO CONSTIPATION; Start 02/16/17 at 21:00 Al Hydrox/Mg Hydrox/Simethicone (Mag-Al Plus) 30 ml Q6H PRN PO GASTROINTESTINAL UPSET Last administered on 02/20/17 12:30; Admin Dose 30 ML; Start 02/16/17 at 21:00 Clonidine (Catapres) 0.1 mg Q8H PRN PO SBP >180; Start 02/16/17 at 21:00 Diphenhydramine HCl (Benadryl) 25 mg Q6H PRN PO ITCHING; Start 02/16/17 at 21:00 Lorazepam (Ativan) 0.5 mg Q8H PRN PO ANXIETY Last administered on 02/23/17 08: 43; Admin Dose 0.5 MG; Start 02/16/17 at 21:00 Phenol (Cepastat Lozenge) 1 lozenge Q2H PRN [place] SORE THROAT Last administered on 02/21/17 13:29; Admin Dose 1 LOZENGE; Start 02/16/17 at 21:00 Oxycodone HCl (Roxicodone) 15 mg Q3H PRN PO PAIN Last administered on 02/18/17 03:47; Admin Dose 15 MG; Start 02/16/17 at 21:00 Bisacodyl (Dulcolax Supp) 10 mg Q12H PRN [place] CONSTIPATION; Start 02/16/17 at 21: 00 Naloxone HCl (Narcan) 0.2 mg Q2M PRN IV OPIATE OVERDOSE; Start 02/16/17 at 21:00 Ondansetron HCl (Zofran Inj) 4 mg Q4H PRN IV NAUSEA AND/OR VOMITING; Start 02/16 at 21:00 Hydromorphone HCl (Dilaudid) 1 mg Q3H PRN SC PAIN Last administered on 00:12; Admin Dose 1 MG; Start 02/16/17 at 21:00 Diagnostic Test (Pha) (Accu-Chek) 1 ea 02 XX Last administered on 02/25/17 01: 59; Admin Dose 1 EA; Start 02/17/17 at 02:00 Miscellaneous Information 1 ea NOTE XX ; Start 02/16/17 at 22:30 Glucose (Glutose) 15 gm Q15M PRN PO DECREASED GLUCOSE; Start 02/16/17 at 22:30 Glucose (Glutose) 22.5 gm Q15M PRN PO DECREASED GLUCOSE; Start 02/16/17 at 22:30 Dextrose (D50w Syringe) 25 ml Q15M PRN IV DECREASED GLUCOSE; Start 02/16/17 at 22:30 Dextrose (D50w Syringe) 50 ml Q15M PRN IV DECREASED GLUCOSE; Start 02/16/17 at 22:30 Glucagon (Glucagen) 1 mg Q15M PRN IM DECREASED GLUCOSE; Start 02/16/17 at 22:30 Glucose (Glutose) 15 gm Q15M PRN BUCCAL DECREASED GLUCOSE; Start 02/16/17 at 22: 30 Senna (Senokot) 1 tab HS PO Last administered on 02/24/17 20:18; Admin Dose 1 TAB; Start 02/17/17 at 21:00 Magnesium Hydroxide (Milk Of Mag) 30 ml BID PRN PO CONSTIPATION; Start 02/16/17 at 23:00 Lactulose (Enulose) 20 gm DAILY PRN PO CONSTIPATION; Start 02/16/17 at 23:00 Bisacodyl (Dulcolax Supp) 10 mg DAILY PRN [place] CONSTIPATION; Start 02/16/17 at 23: 00 Acetaminophen (Tylenol Tab) 650 mg Q4H PRN PO PAIN; Start 02/16/17 at 23:00 Oxycodone HCl (Roxicodone) 20 mg Q3H PRN PO PAIN Last administered on 11:34; Admin Dose 20 MG; Start 02/17/17 at 09:30 Oxycodone HCl (Oxycontin) 10 mg BID PO Last administered on 02/25/17 08:07; Admin Dose 10 MG; Start 02/17/17 at 21:00 DEVEN VO DO Feb 25, 2017 12:25
[2017-02-25] MEDS: RIVAROXABAN 10 MG TABLET PO SCH (17:26)
[2017-02-25 19:39] VITALS: BP 99/55; RESP 20
[2017-02-25] MEDS: SENNA TAB PO SCH (20:25)
[2017-02-25] MEDS: PANTOPRAZOLE (EC) 40 MG TAB PO SCH (20:25)
[2017-02-26] MEDS: ACCUCHECK AT 2AM (Patients on SS coverage) XX SCH (01:40)
[2017-02-26] MEDS: oxyCODONE 5 MG TAB PO PRN ×5 (05:41→23:35)
[2017-02-26 07:30] VITALS: BP 114/64; RESP 18
[2017-02-26] MEDS: Insulin NOVOLOG SS MILD Algorithm (SS with meals and bedtime) SC SCH ×4 (08:07→20:48)
[2017-02-26] MEDS: DOCUSATE SODIUM 100 MG CAP PO SCH ×2 (08:08→20:36)
[2017-02-26] MEDS: oxyCODONE (CR) 10 MG TAB [oxyCONTIN] PO SCH ×2 (08:08→20:38)
[2017-02-26] MEDS: metFORMIN 500 MG TAB PO SCH ×2 (08:08→17:07)
[2017-02-26] MEDS: LISINOPRIL 20 MG TAB PO SCH (08:09)
--- NOTE | 2017-02-26 10:16 | PN ---
DATE: 02/26/2017 SUBJECTIVE: The patient is stable. Continues to have some mild left knee pain, although improving. No other events noted. OBJECTIVE: VITAL SIGNS: Blood pressure 142/64, respiration 18, pulse 86, temperature 98.3. HEENT: Head is normocephalic. NECK: Supple. HEART: Regular rate. LUNGS: Show diminished breath sounds at the base. ABDOMEN: Soft, nontender to palpation without rebound or guarding. EXTREMITIES: Negative for clubbing, cyanosis, no edema. DERMATOLOGIC: No rashes. MUSCULOSKELETAL: The patient has dressing over left knee. NEUROLOGIC: No focal deficits. MEDICATIONS: Have been reviewed. LABORATORY DATA: Have been reviewed. No new labs. ASSESSMENT AND PLAN: 1. Status post left knee replacement. The patient is currently stable. Continue PT, OT. Continue pain control. 2. Diabetes. Continue current insulin regimen. Accu-Cheks and insulin sliding scale. 3. Hypertension, controlled. Continue current blood pressure regimen. 4. Anemia. Continue to monitor hemoglobin and hematocrit levels. 5. Anxiety disorder. Continue Ativan. 6. Gastrointestinal and deep venous thrombosis prophylaxis. Continue proton pump inhibitor and Xar elto. Dictated By: RASHAWN BEAN/NTS Conf#: [id number] DID#: [id number]
[2017-02-26] MEDS: HYDROmorphONE 1 MG/ML SYG SC PRN (10:23)
--- NOTE | 2017-02-26 12:09 | CONS ---
Date/Time of Note Date/Time of Note DATE: 02/26/17 TIME: 12:09 Consult Date/Type/Reason Admit Date/Time Feb 16, 2017 at 20:23 Subjective Overall improved Objective Vital Signs Date Time Temp Pulse Resp B/P Pulse Ox O2 Delivery O2 Flow Rate FiO2 02/26/17 07:30 98.3 86 18 114/64 95 02/24/17 20:10 Room Air Intake and Output 02/25/17 02/25/17 02/26/17 15:00 23:00 07:00 Intake Total 680 ml 250 ml Balance 680 ml 250 ml INTERDISCIPLINARY TEAM CONFERENCE BOWEL- Cont BLADDER-Cont SKIN- intact OT- DRESSING-s BATHING-s TOILETING-s PT- BED MOBILITY-s TRANSFERS-s AMBULATION-s 150 feet A/P- Interdisciplinary team conference held today. Please see interdisciplinary sheet. Working toward d.c. on 02/27 with post discharge follow up of physical therapy, occupational therapy. Results/Medications Result Diagram: 02/23/17 0555 02/23/17 0555 Results 24 hrs Laboratory Tests Test 02/25/17 17:10 02/25/17 20:23 02/26/17 07:15 02/26/17 08:04 Bedside Glucose 205 135 142 144 Test 02/26/17 12:00 Bedside Glucose 150 Medications Current Medications Docusate Sodium (Colace) 100 mg BID PO Last administered on 02/26/17 08:08; Admin Dose 100 MG; Start 02/16/17 at 21:00 Pantoprazole (Protonix Tab) 40 mg HS PO Last administered on 02/25/17 20:25; Admin Dose 40 MG; Start 02/16/17 at 22:30 Lisinopril (Zestril) 20 mg DAILY PO Last administered on 02/26/17 08:09; Admin Dose 20 MG; Start 02/17/17 at 09:00 Senna/Docusate Sodium (Senokot-S) 2 tab HS PRN PO CONSTIPATION; Start 02/16/17 at 21:00 Al Hydrox/Mg Hydrox/Simethicone (Mag-Al Plus) 30 ml Q6H PRN PO GASTROINTESTINAL UPSET Last administered on 02/20/17 12:30; Admin Dose 30 ML; Start 02/16/17 at 21:00 Clonidine (Catapres) 0.1 mg Q8H PRN PO SBP >180; Start 02/16/17 at 21:00 Diphenhydramine HCl (Benadryl) 25 mg Q6H PRN PO ITCHING; Start 02/16/17 at 21:00 Lorazepam (Ativan) 0.5 mg Q8H PRN PO ANXIETY Last administered on 02/23/17 08: 43; Admin Dose 0.5 MG; Start 02/16/17 at 21:00 Phenol (Cepastat Lozenge) 1 lozenge Q2H PRN [place] SORE THROAT Last administered on 02/21/17 13:29; Admin Dose 1 LOZENGE; Start 02/16/17 at 21:00 Oxycodone HCl (Roxicodone) 15 mg Q3H PRN PO PAIN Last administered on 02/18/17 03:47; Admin Dose 15 MG; Start 02/16/17 at 21:00 Bisacodyl (Dulcolax Supp) 10 mg Q12H PRN [place] CONSTIPATION; Start 02/16/17 at 21: 00 Naloxone HCl (Narcan) 0.2 mg Q2M PRN IV OPIATE OVERDOSE; Start 02/16/17 at 21:00 Ondansetron HCl (Zofran Inj) 4 mg Q4H PRN IV NAUSEA AND/OR VOMITING; Start 02/16 at 21:00 Hydromorphone HCl (Dilaudid) 1 mg Q3H PRN SC PAIN Last administered on 00:12; Admin Dose 1 MG; Start 02/16/17 at 21:00 Diagnostic Test (Pha) (Accu-Chek) 1 ea 02 XX Last administered on 02/25/17 01: 59; Admin Dose 1 EA; Start 02/17/17 at 02:00 Miscellaneous Information 1 ea NOTE XX ; Start 02/16/17 at 22:30 Glucose (Glutose) 15 gm Q15M PRN PO DECREASED GLUCOSE; Start 02/16/17 at 22:30 Glucose (Glutose) 22.5 gm Q15M PRN PO DECREASED GLUCOSE; Start 02/16/17 at 22:30 Dextrose (D50w Syringe) 25 ml Q15M PRN IV DECREASED GLUCOSE; Start 02/16/17 at 22:30 Dextrose (D50w Syringe) 50 ml Q15M PRN IV DECREASED GLUCOSE; Start 02/16/17 at 22:30 Glucagon (Glucagen) 1 mg Q15M PRN IM DECREASED GLUCOSE; Start 02/16/17 at 22:30 Glucose (Glutose) 15 gm Q15M PRN BUCCAL DECREASED GLUCOSE; Start 02/16/17 at 22: 30 Senna (Senokot) 1 tab HS PO Last administered on 02/25/17 20:25; Admin Dose 1 TAB; Start 02/17/17 at 21:00 Magnesium Hydroxide (Milk Of Mag) 30 ml BID PRN PO CONSTIPATION; Start 02/16/17 at 23:00 Lactulose (Enulose) 20 gm DAILY PRN PO CONSTIPATION; Start 02/16/17 at 23:00 Bisacodyl (Dulcolax Supp) 10 mg DAILY PRN [place] CONSTIPATION; Start 02/16/17 at 23: 00 Acetaminophen (Tylenol Tab) 650 mg Q4H PRN PO PAIN; Start 02/16/17 at 23:00 Oxycodone HCl (Roxicodone) 20 mg Q3H PRN PO PAIN Last administered on 12:04; Admin Dose 20 MG; Start 02/17/17 at 09:30 Oxycodone HCl (Oxycontin) 10 mg BID PO Last administered on 02/26/17 08:08; Admin Dose 10 MG; Start 02/17/17 at 21:00 VANESSA BACON MD Feb 26, 2017 12:09
[2017-02-26] MEDS: RIVAROXABAN 10 MG TABLET PO SCH (17:07)
[2017-02-26] MEDS ORDERED: ONDANSETRON 4 MG TAB PO PRN (20:00)
[2017-02-26 20:27] VITALS: BP 103/52; RESP 18
[2017-02-26] MEDS: PANTOPRAZOLE (EC) 40 MG TAB PO SCH (20:36)
[2017-02-26] MEDS: SENNA TAB PO SCH (20:38)
[2017-02-27] MEDS: ACCUCHECK AT 2AM (Patients on SS coverage) XX SCH (02:00)
[2017-02-27] MEDS: oxyCODONE 5 MG TAB PO PRN ×2 (02:45→14:06)
[2017-02-27] MEDS: Insulin NOVOLOG SS MILD Algorithm (SS with meals and bedtime) SC SCH ×2 (07:05→12:11)
[2017-02-27] MEDS: metFORMIN 500 MG TAB PO SCH (08:12)
[2017-02-27] MEDS: HYDROmorphONE 1 MG/ML SYG SC PRN ×3 (08:22→15:30)
[2017-02-27] MEDS: LORAZEPAM 0.5 MG TAB PO PRN (08:50)
[2017-02-27] MEDS: LISINOPRIL 20 MG TAB PO SCH (09:00)
[2017-02-27] MEDS: oxyCODONE (CR) 10 MG TAB [oxyCONTIN] PO SCH (10:37)
[2017-02-27] MEDS: DOCUSATE SODIUM 100 MG CAP PO SCH (10:38)
--- NOTE | 2017-02-27 10:57 | PN ---
DATE: 02/27/2017 SUBJECTIVE: The patient is stable, no acute events overnight. No fevers, chills, nausea, vomiting. No shortness of breath. OBJECTIVE: VITAL SIGNS: Blood pressure ____, respiration 18, pulse 92, temperature 98.3. HEENT: Head is normocephalic. NECK: Supple. HEART: Regular rate. LUNGS: Show diminished breath sounds at base. ABDOMEN: Soft, nontender to palpation without rebound or guarding. EXTREMITIES: Negative for clubbing, cyanosis, no edema. DERMATOLOGIC: No rashes. MUSCULOSKELETAL: The patient has dressing over left leg, clean, dry, and intact. NEUROLOGIC: No change in exam. MEDICATIONS: Have been reviewed. LABORATORY DATA: Has been reviewed. ASSESSMENT AND PLAN: 1. Status post left knee replacement. The patient is currently stable. Continue PT, OT. 2. Diabetes. Continue current insulin regimen. 3. Hypertension, controlled. Continue current blood pressure regimen. 4. Anemia. Continue to monitor hemoglobin and hematocrit levels. 5. Anxiety disorder. Continue Ativan. 6. Gastrointestinal and deep venous thrombosis prophylaxis. Continue PPI and Xarelto. Dictated By: RASHAWN BEAN/ETHAN Conf#: [id number] DID#: [id number]
== END 2017-02-27 16:45 | disposition home health service (06) | DRG 560 ==
LOC: VRC 20:23
PROVIDERS: ADMIT Physical Medicine & Rehabilitation; ATTEND Internal Medicine Nephrology
PROC: F08Z0ZZ Bathing/Showering Techniques Treatment (ICD-10-PCS; principal; 2017-02-16)
PROC: F07Z5ZZ Bed Mobility Treatment (ICD-10-PCS; 2017-02-16)
DX: Z47.1 Aftercare following joint replacement surgery (principal); E87.1 Hypo-osmolality and hyponatremia; I10 Essential (primary) hypertension; E11.9 Type 2 diabetes mellitus without complications; E66.9 Obesity, unspecified; D64.9 Anemia, unspecified; Z96.652 Presence of left artificial knee joint; Z68.38 Body mass index [BMI] 38.0-38.9, adult; K21.9 Gastro-esophageal reflux disease without esophagitis; F41.9 Anxiety disorder, unspecified
CPT/HCPCS: 80048; 80053; 81001; 81003; 82962; 83735; 84100; 85025; 87081; 87086; 93971; 97110; 97112; 97116; 97150; 97163; 97167; 97530; 97535; J1170; J1815